=== PATIENT | female | born 1955 | race Caucasian/White ===

== ENCOUNTER 2021-12-25 13:45 | Emergency (ER) | payer BC, SELFPAY ==
[2021-12-25 13:46] VITALS: BP 203/106; PULSE 92; RESP 16; TEMP 36.2; O2SAT 97; BMI 46.3
--- NOTE | 2021-12-25 13:49 | RAD_ITS ---
STUDY: XR Shoulder Min 2 Views REASON FOR EXAM: Female, 66 years old. PAIN TECHNIQUE: XR Shoulder Min 2 Views COMPARISON: None. FINDINGS: There is severe degenerative arthrosis of the glenohumeral articulation. Normal acromioclavicular joint. Normal acromion. There is a metal sideplate transfixing the proximal humerus. There are cortical screws holding the plate in place. The soft tissue structures are unremarkable. Normal visualized pulmonary apex. RAD/Shoulder min 2 Views IMPRESSION: There is severe degenerative arthrosis of the glenohumeral articulation. Electronically Signed: Archie Medina MD at 14:08 EST ,
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
[2021-12-25] MEDS: Diphth,Pertuss(Acell),Tet Vac 0.5 ML Vial IM (14:26)
== END 2021-12-25 14:42 | disposition home or self-care (01) ==
PROVIDERS: Emergency Provider Emergency Medicine; Visit Provider Emergency Medicine
DX: S40.011A Contusion of right shoulder, initial encounter (principal); S00.81XA Abrasion of other part of head, initial encounter; V18.4XXA Pedal cycle driver injured in noncollision transport accident in traffic accident, initial encounter; Y93.55 Activity, bike riding; M19.011 Primary osteoarthritis, right shoulder; Z23 Encounter for immunization
CPT/HCPCS: 73030; 90471; 90715; 99283

== ENCOUNTER → 2022-06-29 | Outpatient (CLI) | payer BC, SELFPAY ==
[2022-06-29 08:40] LABS: Absolute Lymphocyte Count 1.46 X10^3/uL (0.83-4.51); Absolute Neutrophil Count 2.9 X10^3/uL (2.0-7.7); Basophil# 0.04 X10^3/uL; Basophil% 0.8 % (0-1); Eosinophil# 0.36 X10^3/uL; Hematocrit 46.1 % (37-47); Lymphocyte # 1.46 X10^3/ul (0.83-4.51); Lymphocyte % 28.3 % (19-41); Mean Corp Hgb Conc 32.5 g/dL (32-36); Mean Corpuscular Hgb 30.7 pg (27.0-32.0); Mean Corpuscular Volume 94.5 fL (81-99); Mean Platelet Vol. 10.3 fl (6.2-12.0); Monocyte# 0.39 X10^3/uL; Monocyte% 7.6 % (0-10); NRBC Flagged by Analyzer 0 % (0-5); Neutrophil # 2.89 X10^3/uL (2.7-7.7); Neutrophil % 56.1 % (47-70); Platelet Count 183 K/mm3 (150-450); RBC Distribution Width CV 13.1 % (11.6-14.6); RBC Distribution Width SD 44.5 fl (35.1-43.9); Red Blood Count 4.88 M/mm3 (4.2-5.4); White Blood Count 5.2 K/mm3 (4.4-11.0)
[2022-06-29 09:08] LABS: ALB/GLOB Ratio 0.9 RATIO (0.9-2.4); AST(SGOT) 21 U/L (15-37); Alanine Aminotransfer ALT/SGPT 26 U/L (13-56); Albumin, Serum 3.7 g/dL (3.2-5.0); Alkaline Phosphatase 51 U/L (45-117); Anion Gap 4 (5-15); BUN 16 mg/dL (7-18); BUN/Creat Ratio 16.2 RATIO (10-20); Calcium,Total 9.2 mg/dL (8.5-10.1); Chloride 109 mmol/L (98-107); Cholesterol 172 mg/dL (200); Creatinine, Serum 0.98 mg/dL (0.55-1.02); EST Glomerular Filtration Rate 60 mL/min (>60); Est Glom Filt Rate - Afr Amer 72 mL/min (>60); Globulin 4.2 g/dL (2.2-4.2); Glucose 94 mg/dL (74-106); High Density Lipoprotein 40 mg/dL; Potassium 4.2 mmol/L (3.5-5.1); Protein, Total 7.9 g/dL (6.4-8.2); Sodium Level 140 mmol/L (136-145); Triglycerides 135 mg/dL; Very Low Density Lipoprotein 27 mg/dL (5-40)
== END | disposition home or self-care (01) ==
PROVIDERS: PCP Family Medicine; Visit Provider Family Medicine
DX: Z00.00 Encounter for general adult medical examination without abnormal findings (principal); I10 Essential (primary) hypertension
CPT/HCPCS: 36415; 80053; 80061; 85025

== ENCOUNTER → 2022-08-26 | Outpatient (CLI) | payer BC, SELFPAY ==
--- NOTE | 2022-08-26 08:49 | BI_ITS ---
MAMMOGRAPHY - UNILATERAL DIAGNOSTIC: LEFT BREAST REASON FOR EXAM: Female, 67 years old. Abnormal screening mammogram. PERTINENT HISTORY: Mother with breast cancer. TECHNIQUE: Compression spot views of the left breast were obtained in the mediolateral oblique and craniocaudad projections. CAD: Full Field Digital Mammography with Computer Added Detection was performed. COMPARISON: Comparison is made with prior outside examination dated 07/20/2022. FINDINGS: Breast Composition: There are scattered areas of fibroglandular density. The area of asymmetry in the slightly inferior central portion of the left breast is not as prominent at this time. Correlation with ultrasound is recommended. No other significant abnormalities are identified. BI/DIAG MAMM W/CAD, UNILAT IMPRESSION: Mild persistence of the focal area of asymmetry in the slightly inferior central/medial aspect of the left breast. Correlation with ultrasound is recommended. ASSESSMENT CATEGORY: BIRADS Category 0: Incomplete. Need additional imaging evaluation. A letter regarding these results will be sent to the patient by the facility within 30 days. Approximately 10% of breast cancers are not detected by mammography. A normal mammogram should not delay biopsy of a clinically suspicious abnormality. Electronically Signed: Riccardo Ponce MD at 9:55 EDT ,
--- NOTE | 2022-08-26 08:50 | US_ITS ---
STUDY: ULTRASOUND BREAST - LEFT REASON FOR EXAM: Female, 67 years old. Abnormal screening mammogram. TECHNIQUE: Axial and longitudinal images of the LEFT breast were performed with a high resolution ultrasound transducer. # OF IMAGES: 25 COMPARISON: Comparison is made with prior mammogram done earlier today as well as prior outside images dated 07/20/2022. FINDINGS: LEFT Breast: The inferior medial aspect of the left breast was examined with ultrasound. No sonographic abnormality is seen. US/Breast Limited Unilateral IMPRESSION: No sonographic abnormality is seen. ASSESSMENT CATEGORY: BIRADS Category 1: Negative. A letter regarding these results will be sent to the patient by the facility within 30 days. Electronically Signed: Riccardo Ponce MD at 10:41 EDT ,
== END | disposition home or self-care (01) ==
PROVIDERS: PCP Family Medicine; Referring Provider Family Medicine; Visit Provider Family Medicine
DX: R92.8 Other abnormal and inconclusive findings on diagnostic imaging of breast (principal)
CPT/HCPCS: 76642; 77065

== ENCOUNTER → 2023-09-27 | Outpatient (CLI) | payer BC, SELFPAY ==
--- NOTE | 2023-09-27 12:20 | BI_ITS ---
MAMMOGRAPHY - BILATERAL SCREENING REASON FOR EXAM: Female, 68 years old. Routine annual screening examination. PERTINENT HISTORY: Mother with breast cancer. TECHNIQUE: Digital bilateral breast kana (3D mammographic acquisition) in the CC and MLO projections. 2-D mediolateral oblique (MLO) and craniocaudad (CC) views of both breasts were obtained. CAD: Full Field Digital Mammography with Computer Added Detection was performed. COMPARISON: Comparison is made with prior outside examination dated July 20, 2022 and August 26, 2022. FINDINGS: Breast Composition: There are scattered areas of fibroglandular density. There are no dominant masses or suspicious calcifications. Stable asymmetry of breast tissue in the retroareolar region of the left breast. Prior sonogram demonstrating this to be glandular tissue. No other significant abnormalities are identified. There has been no significant change since the prior study. BI/SCRN MAMM (CAD)W/KANA BILAT IMPRESSION: Stable bilateral screening mammogram. Yearly follow-up mammogram recommended. (A) ASSESSMENT CATEGORY: BIRADS Category 2: Benign. A letter regarding these results will be sent to the patient by the facility within 30 days. Approximately 10% of breast cancers are not detected by mammography. A normal mammogram should not delay biopsy of a clinically suspicious abnormality. [id number] Electronically Signed: Riccardo Ponce MD at 10:28 EST ,
== END | disposition home or self-care (01) ==
LOC: OPBI 12:17
PROVIDERS: PCP Family Medicine; Referring Provider Family Medicine; Visit Provider Family Medicine
DX: Z12.31 Encounter for screening mammogram for malignant neoplasm of breast (principal); Z80.3 Family history of malignant neoplasm of breast
CPT/HCPCS: 77063; 77067

== ENCOUNTER → 2025-01-31 | Outpatient (CLI) | payer BC, SELFPAY ==
--- NOTE | 2025-01-31 08:35 | BI_ITS ---
EXAM: SCRN MAMM (CAD)W/KANA BILAT 01/31/2025 CLINICAL HISTORY: F, Age 70 y/o , SCREENING TECHNIQUE: Bilateral screening digital breast tomosynthesis with 2D and 3D images. Computer aided detection. COMPARISON: Prior exam(s) dated 09/27/2023, 08/26/2022. FINDINGS: Somewhat limited examination of the left axillary tail/axilla due to limited range of motion of the left upper extremity. TISSUE DENSITY: The breast tissue is composed of scattered area of fibroglandular density. Bilateral Breast Mammographic Findings: No significant masses, calcifications or other abnormalities are identified. BI/SCRN MAMM (CAD)W/KANA BILAT IMPRESSION: Right Breast: BIRADS 1 NEGATIVE. Left Breast: BIRADS 1 NEGATIVE. OVERALL FINAL ASSESSMENT: BIRADS 1 NEGATIVE. RECOMMENDATION: Routine annual follow-up in 1 Year A letter with findings and recommendations will be mailed to the patient. Reading Location: [id number]
== END | disposition home or self-care (01) ==
LOC: OPBI 08:31
PROVIDERS: PCP Family Medicine; Referring Provider Family Medicine; Visit Provider Family Medicine
DX: Z12.31 Encounter for screening mammogram for malignant neoplasm of breast (principal)
CPT/HCPCS: 77063; 77067

== ENCOUNTER → 2025-04-07 | Outpatient (CLI) | payer BC, SELFPAY ==
[2025-04-07 13:00] LABS: Anion Gap 11 (5-15); BUN 16 mg/dL (4-19); BUN/Creat Ratio 15.9 RATIO (10-20); Calcium,Total 9.7 mg/dL (7.6-11.0); Carbon Dioxide 24.8 mmol/L (21.0-32.0); Chloride 106 mmol/L (98-108); Creatinine, Serum 0.98 mg/dL (0.70-1.20); EST Glomerular Filtration Rate 62 (>60); Glucose 88 mg/dL (70-99); Potassium 4.5 mmol/L (3.3-5.1); Sodium Level 141 mmol/L (133-145)
== END | disposition home or self-care (01) ==
LOC: LAB 11:28
PROVIDERS: PCP Family Medicine; Referring Provider Student in an Organized Health Care Education/Training Program; Visit Provider Student in an Organized Health Care Education/Training Program
DX: I10 Essential (primary) hypertension (principal)
CPT/HCPCS: 36415; 80048

== ENCOUNTER → 2025-04-11 | Outpatient (CLI) | payer BC, SELFPAY ==
--- NOTE | 2025-04-11 08:20 | ECHOD_ITS ---
Reason For Study Reason For Study: Murmur Procedure This was a 2D Doppler, Color Flow transthoracic echocardiogram. Exam performed in department. Left Ventricle Normal LV size. Mild concentric left ventricular hypertrophy. The left ventricular ejection fraction is 40 %. Stage 1 diastolic dysfunction. Right Ventricle Normal RV size. Normal systolic function. Atria Normal left atrium. Normal right atrium. Mitral Valve Normal mitral valve. Tricuspid Valve Normal tricuspid valve. Mild tricuspid valve insufficiency. Pulmonary artery systolic pressure is 20 mmHg. Aortic Valve Trisinus/trileaflet aortic valve. Mild focal aortic valve calcification. Peak aortic valve gradient 25 mmHg. Mean aortic valve gradient 14 mmHg. Pericardium/Pleural No pericardial effusion. MMode/2D Measurements & Calculations LVIDd: 5.4 cm IVSd: 1.5 cm LVOT diam: 2.1 cm LVIDs: 4.5 cm LVPWd: 1.2 cm LVOT area: 3.5 cm2 RVDd: 3.9 cm FS: 15.8 % Ao root diam: 3.6 cm LAV(MOD-bp): 65.2 ml LVAd ap4: 46.3 cm2 LAV(MOD-bp) Indexed: 29.6 ml/m2 LVLd ap4: 9.3 cm LAV(MOD-sp2): 65.6 ml EDV(MOD-sp4): 189.7 ml LAV(MOD-sp4): 60.6 ml EDV(sp4-el): 195.5 ml LVAs ap4: 34.2 cm2 LVLs ap4: 8.2 cm ESV(MOD-sp4): 120.9 ml ESV(sp4-el): 120.1 ml EF(MOD-sp4): 36.3 % EF(sp4-el): 38.5 % SV(MOD-sp4): 68.8 ml SV(MOD-sp2): 51.3 ml LVAd ap2: 39.6 cm2 LVLd ap2: 9.1 cm SI(MOD-sp4): 31.2 ml/m2 SI(MOD-sp2): 23.3 ml/m2 EDV(MOD-sp2): 144.8 ml EDV(sp2-el): 146.0 ml LVAs ap2: 31.4 cm2 LVLs ap2: 8.8 cm ESV(MOD-sp2): 93.4 ml ESV(sp2-el): 95.4 ml EF(MOD-sp2): 35.5 % SV(sp4-el): 75.4 ml LA A4 area: 19.9 cm2 RA A4 area: 14.4 cm2 TAPSE: 1.9 cm Time Measurements MV dec time: 0.29 sec Doppler Measurements & Calculations MV E max regis: 90.6 cm/sec Lat Peak E' Regis: 5.8 cm/sec Med Peak E' Regis: 4.2 cm/sec MV A max regis: 124.1 cm/sec E/E' lat: 15.6 E/E' med: 21.7 MV E/A: 0.73 Ao V2 max: 250.4 cm/sec LV V1 max: 137.9 cm/sec MV dec slope: 315.9 cm/sec2 Ao max P.1 mmHg LV V1 max P.6 mmHg Ao V2 mean: 178.0 cm/sec LV V1 mean P.3 mmHg Ao mean P.9 mmHg LV V1 mean: 97.6 cm/sec Ao V2 VTI: 56.4 cm LV V1 VTI: 31.7 cm AV (velocity ratio): 0.56 DILAN(I,D): 2.0 cm2 DILAN(V,D): 1.9 cm2 SV(LVOT): 110.1 ml PA V2 max: 114.9 cm/sec TR max regis: 206.9 cm/sec TR max P.1 mmHg ECHO/Echo Complete Interpretation Summary Normal LV size. The left ventricular ejection fraction is 40 %. Stage 1 diastolic dysfunction. Mean aortic valve gradient 14 mmHg. Ordering Physician: Oscar, [place] Referring Physician: Fiona Urena Performed By: Penny Zayas, [facility]
--- OUTSIDE RECORDS SUMMARY | 2025-04-11 08:39 | XMS RPT_ITS | CCD ---
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 [facility] Work Phone: Protein [Mass/Vol] 7.9 g/dL 6.4-8.2 [facility] Work Phone: Sodium [Moles/Vol] 140 mmol/L 136-145 [facility] Work Phone: Triglyceride [Mass/Vol] 135 mg/dL <199 [facility] Work Phone: Comment on above: The drugs N-Acetylcy steine and Metamizole may falsely depress this assay.Serum Triglycerides Reference Interval Normal <150 mg/dL Borderline high 150 - 199 mg/dL High 200 - 499 mg/dL Very High > or = 500 mg/dL WBC (Bld) [#/Vol] 5.2 10*3/uL 4.4-11.0 [facility] Work Phone: Blood erythrocytes count (nu mber/volume)on 06-29-2022 RBC (Bld) [#/Vol] 4.88 10*6/uL 4.2-5.4 [facility]: Blood hemoglobin measurement (mass/volume)on 06-29-2022 Hemoglobin (Bld) [Mass/Vol] 15.0 g/dL 12.0-15.0 [facility] Work Phone: Blood lymphocytes/100 leukoc yteson 06-29-2022 Lymphocytes/100 WBC (Bld) 28.3 % 19-41 [facility] Work Phone: Blood monocytes/100 leukocyt eson 06-29-2022 Monocytes/100 WBC (Bld) 7.6 % 0-10 [facility] Work Phone: Blood platelet mean volumeon 06-29-2022 Platelet mean volume (Bld) [Entitic vol] 10.3 fL 6.2-12.0 [facility] Work Phone: Determination of erythrocyte mean corpuscular volume (MCV)on 06-29-2022 MCV (RBC) [Entitic vol] 94.5 fL 81-99 [facility] Work Phone: Hematocrit Auto (Bld) [Volum e fraction]on 06-29-2022 Hematocrit (Bld) [Volume fraction] 46.1 % 37-47 [facility] Work Phone: Laboratory - Chemistry and C hemistry - challengeon 06-29-2022 ALP [Catalytic activity/Vol] 51 U/L 45-117 [facility] Work Phone: ALT [Catalytic activity/Vol] 26 U/L 13-56 [facility] Work Phone: CO2 [Moles/Vol] 27.0 mmol/L 21.0-32.0 [facility] Work Phone: Globulin (S) [Mass/Vol] 4.2 g/dL 2.2-4.2 [facility] Work Phone: Urea nitrogen/Creatinine [Mass ratio] 16.2 mg/mg 10-20 [facility] Work Phone: Laboratory - Hematology and Cell countson 06-29-2022 Erythrocyte distribution width (RBC) [Entitic vol] 44.5 fL 35.1-43.9 [facility] Work Phone: Erythrocyte distribution width (RBC) [Ratio] 13.1 % 11.6-14.6 [facility] Work Phone: Immature granulocytes/100 WBC (Bld) 0.200 % 0.0-0.9 [facility] Work Phone: Comment on above: IG% - Immature Granu locytes (promyelocytes, myelocytes and metamyelocytes) > 1% indicates that a LEFT SHIFT is Present. MCH (RBC) [Entitic mass] 30.7 pg 27.0-32.0 [facility] Work Phone: Nucleated RBC/100 WBC (Bld) [Ratio] 0 % 0-5 [facility] Work Phone: MCHC Auto (RBC) [Mass/Vol]on 06-29-2022 MCHC (RBC) [Mass/Vol] 32.5 g/dL 32-36 [facility] Work Phone: No Panel Informationon 06-29 Estimated GFR (MDRD) Amer 72 mL/min >60 [facility] Work Phone: Comment on above: GFR Calc Estimated GFR (MDRD) Non-Af Amer 60 mL/min >60 [facility] Work Phone: Comment on above: Non- GFR Calc Platelets bldon 06-29-2022 Platelets (Bld) [#/Vol] 183 10*3/uL 150-450 [facility] Work Phone: Serum or plasma albumin mana urement (mass/volume)on 06-29-2022 Albumin [Mass/Vol] 3.7 g/dL 3.2-5.0 [facility] Work Phone: Serum or plasma albumin/glob ulin mass ratioon 06-29-2022 Albumin/Globulin [Mass ratio] 0.9 {ratio} 0.9-2.4 [facility] Work Phone: Serum or plasma calcium mana urement (mass/volume)on 06-29-2022 Calcium [Mass/Vol] 9.2 mg/dL 8.5-10.1 [facility] Work Phone: Serum or plasma cholesterol in HDL measurement (mass/volume)on 06-29-2022 Cholesterol in HDL [Mass/Vol] 40 mg/dL >40 [facility] Work Phone: Comment on above: The drugs N-Acetylcy steine and Metamizole may falsely depress this assay. Reference Range HDL <40 mg/dL Low HDL Cholesterol HDL >or= 60 mg/dL High HDL Cholesterol Serum or plasma cholesterol in VLDL measurement (mass/volume)on 06-29-2022 Cholesterol in VLDL [Mass/Vol] 27 mg/dL 5-40 [facility] Work Phone: Serum or plasma creatinine m easurement (mass/volume)on 06-29-2022 Creatinine [Mass/Vol] 0.98 mg/dL 0.55-1.02 [facility] Work Phone: Comment on above: The validity of the calculated GFR & GFRAA in patients over 70 years has not been determined. Clinical correlation is essential. Serum or plasma low density lipoprotein (LDL) cholesterol measurement (mass/volume)on 06-29-2022 Cholesterol in LDL [Mass/Vol] 105 mg/dL 0-130 [facility] Work Phone: Serum or plasma urea nitroge n measurement (mass/volume)on 06-29-2022 Urea nitrogen [Mass/Vol] 16 mg/dL 7-18 [facility] Work Phone: Thin prep Papanicolaou smear with manual screeningon 06-29-2022 Thin prep Papanicolaou smear with manual screening 21 U/L 15-37 [facility] Work Phone: Thin prep Papanicolaou smear with manual screening 4 5-15 [facility] Work Phone: Roly 06-24-2022 CNPN Telephone (OBGYWM) ANA RAWLS ([id number]) 1955 F Date Time Provider Department 06/24/22 RASHEED CANO OBGYWM During your visit today, we recorded the following information about you: Lore Love 06/24/2022 1:53 PM Signed Replaying to fax referral. More information needed what the consult is for. Tried calling patient but the phone number given isn't in service. Patient doesn't have usable email listed. Lore Love Allergies As of Date: 06/24/2022 (No Known Allergies) Date Reviewed: 06/19/2012 Reviewed by: Carina Mares Ma - Fully Assessed Reason for Visit: Appointment [186] Cmt: Replaying to fax referral. More information needed what the consult is for. Tried calling patient but the phone number given isn't in service. Patient doesn't have usable email listed. Prescriptions as of 06/24/2022 - triamcinolone acetonide 0.1 % cream Apply 1 application to affected area twice daily. Apply to affected area for rash. Problem List As Of Date 06/24/2022 Noted Resolved VIRAL WARTS NOS [B07.9] 03/21/2007 PAIN IN LIMB [M79.609] 03/21/2007 Head injury, unspecified [S09.90XA] 06/19/2012 Encounter Status:Closed by LORE LOVE on 06/24/22 Normal [facility] Vital Signs Date Time Vital Sign Value Performing Clinician Faci lity 04-07-2025 06:55-0400 Body mass index (BMI) [Ratio] 45.4 kg/m2 Dr. Fiona Urena MD Work Phone: [facility] 04-07-2025 06:55-0400 Body weight 120.[address] Fiona Urena MD Work Phone: [facility] 04-07-2025 06:55-0400 Diastolic blood pressure 86 mm[Hg] Dr. Fiona Urena MD Work Phone: [facility] 04-07-2025 06:55-0400 Heart rate 57 /min Dr. Fiona Urena MD Work Phone: [facility] 04-07-2025 06:55-0400 Respiratory rate 18 /min Dr. Fiona Urena MD Work Phone: [facility] 04-07-2025 06:55-0400 SaO2% (BldA) [Mass fraction] 99 % Dr. Fiona Urena MD Work Phone: [facility] 04-07-2025 06:55-0400 Systolic blood pressure 162 mm[Hg] Dr. Fiona Urena MD Work Phone: [facility] 03-05-2025 10:34-0400 Body height 162.[address] Fiona Urena MD Work Phone: [facility] 03-05-2025 10:34-0400 Body mass index (BMI) [Ratio] 46.3 kg/m2 Dr. Fiona Urena MD Work Phone: [facility] 03-05-2025 10:34-0400 Body weight 122.[address] Fiona Urena MD Work Phone: [facility] 03-05-2025 10:34-0400 Diastolic blood pressure 96 mm[Hg] Dr. Fiona Urena MD Work Phone: [facility] 03-05-2025 10:34-0400 Heart rate 82 /min Dr. Fiona Urena MD Work Phone: [facility] 03-05-2025 10:34-0400 Respiratory rate 16 /min Dr. Fiona Urena MD Work Phone: [facility] 03-05-2025 10:34-0400 Systolic blood pressure 162 mm[Hg] Dr. Fiona Uerna MD Work Phone: [facility] Encounters Encounter Date Encounter Type Care Provider Facility Start: 04-11-2025 ambulatory [facility] Facility:[facility] Start: 04-07-2025 End: 04-07-2025 Patient encounter procedure Alberto SANTIAGO -[facility] Work Phone: Start: 04-07-2025 End: 04-07-[address] Fiona Urena MD Work Phone: [facility] Work Phone: Start: 03-05-2025 End: 03-05-[address] Mitul Moore MD -[facility] Work Phone: Start: 03-05-2025 End: 03-05-2025 ambulatory [facility] Facility:[facility] Start: 01-31-2025 End: 01-31-[address] Fiona Urena MD Work Phone: [facility] Work Phone: Start: 01-31-2025 End: 01-31-[address] Fiona Urena MD -[facility] Work Phone: Start: 01-31-2025 End: 01-31-2025 ambulatory Fiona Urena Facility:[facility] Start: 08-26-2022 End: 08-26-2022 ambulatory [facility] Work Phone: Start: 08-26-2022 End: 08-26-2022 Patient encounter procedure [facility] Start: 07-20-2022 Documentation procedure Mammog kathy Coordinator [facility] Start: 07-20-2022 Letter encounter Mammography Coordinator [facility] Department Start: 07-20-2022 End: 07-20-2022 ambulatory FIONA URENA Facility:[facility] Start: 07-20-2022 End: 07-20-2022 Subsequent hospital visit by physician Screen Mammo [facility] Mammogram Start: 06-29-2022 End: 06-29-2022 ambulatory [facility] Work Phone: Start: 06-29-2022 End: 06-29-2022 Patient encounter procedure [facility]-Laboratory Start: 06-24-2022 Telephone encounter Rasheed Cano MD Work Phone: OB/Gynecology Comment on above: Appointment (Replayi ng to fax referral. More information needed what the consult is for. Tried calling patient but the phone number given isn't in service. Patient doesn't have usable email listed. ) Procedures Date Procedure Procedure Detail Performing Clinician Start: 03-05-2025 Evaluation of diagno stic study results Dr. Fiona Urena MD Work Phone: Start: 01-31-2025 Screening mammography Antonio Urena MD Work Phone: Start: 08-26-2022 Ultrasonography of breast Start: 08-26-2022 Mammography Start: 07-20-2022 End: 07-20-2022 Screening mammography bi [facility] Provider Start: 06-19-2012 Mammography Rasheed kennedy MD Work Phone: Plan of Treatment Date Care Activity Detail Author Start: 07-20-2023 Mammography MAMMOGRAM [facility] Start: 06-30-2022 Influenza vaccination INFLUENZA (#1) [facility] Start: 10-30-2021 ADVANCE DIRECTIVE DISCUSSION ADVANCE DIRECTIVE DISCUSSION [facility] Start: 01-11-2020 BONE DENSITY BONE DENSITY [facility] Start: 01-11-2020 PNEUMOCOCCAL: 65+ (1 - PCV) PNEUMOCOCCAL: 65+ (1 - PCV) [facility] Start: 06-19-2013 Mammography MAMMOGRAM [facility] Start: 02-11-2013 LIPID SCREEN LIPID SCREEN [facility] Start: 02-11-2011 DIABETES SCREEN DIABETES SCREEN [facility] Start: 2005 SHINGRIX VACCINE (1 of 2) SHINGRIX VACCINE (1 of 2) [facility] Start: 01-11-2000 COLOGUARD (FIT-DNA) COLOGUARD (FIT-DNA) [facility] Start: 01-11-2000 Colonoscopy COLONOSCOPY [facility] Start: 01-11-2000 COLORECTAL CANCER SCREENING COLORECTAL CANCER SCREENING [facility] Start: 01-11-[address] COLONOGRAPHY [facility] Start: 01-11-2000 FECAL OCCULT BLOOD FECAL OCCULT BLOOD [facility] Start: 01-11-2000 SIGMOIDOSCOPY SIGMOIDOSCOPY [facility] Start: 1974 Urine microalbumin profile DTAP,TDAP,TD (1 - Tdap) [facility] Start: 1973 HEPATITIS C SCREENING HEPATITIS C SCREENING [facility] Start: 1967 Adult depression screening assessment DEPRESSION SCREENING [facility] Start: 1955 COVID-19 VACCINE (#1) COVID-19 VACCINE (#1) [facility] Basic metabolic 2008 panel with ionized calcium - Serum or Plasma [facility] Immunizations Immunization Date Immunization Notes Care Provider Fa cility 12-25-2021 tetanus toxoid, redu [place] diphtheria toxoid, and acellular pertussis vaccine, adsorbed [facility] 09-30-2017 influenza, injectabl e, quadrivalent, contains preservative Rasheed Cano MD Work Phone: [facility] Payers Date Payer Category Payer Self-pay [id number] 2020 Unknown [employer] BLUE CARD PPO OOS [id number] 2020-Present [phone] [id number] [place] [address] PPO [id number] 2020 Unknown [id number] Unknown [employer] [id number] . 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) [facility] Start: 1955 [facility] Start: 12-25-2021 Tobacco smoking stat us AZIS Unknown if ever smoked [facility] Work Phone: Start: 1955 Sex Assigned At Female [facility] Start: 06-14-2022 End: 06-24-2022 Exposure to SARS-CoV-2 (event) Not sure [facility] Start: 02-05-2025 Sex Female (finding) [facility] Evaluation note 03-05-2025 Note Date & Type Note Facility 03-05-2025 Evaluation note Diagnosis Onset Date Resolution Aortic stenosis acute March 05, 2025 8:55am Chest discomfort acute March 05, 2025 8:55am LBBB (left bundle branch block) acute March 05, 2025 8: 55am Aortic stenosis acute April 07, 2025 10:48am Chest discomfort acute March 10:48am LBBB (left bundle branch block) acute April 07, 2025 1 0:48am [email or web address] Work Phone: Progress note 07-20-2022 Note Date & Type Note Facility 07-20-2022 Note HNO ID: [id number] Author: RT Duc(R) Service: ? Author Type: Technologist Type: Progress Notes Filed: 07/20/2022 9:09 AM Note Text: Radiology Service Progress Note PATIENT NAME: Ana Rawls DATE OF SERVICE: July 20, 2022 TIME: 9:09 AM PATIENT IDENTITY VERIFICATION COMPLETED USING TWO (2) IDENTIFIERS: Name and Date of confirmed by patient verbally. FALL SCREENING: Has the patient had 2 falls in the last year or 1 fall with injury or currently using an Ambulatory Assistive Device (Walker, Cane, Wheelchair, Crutches, etc.)? No PATIENT GENDER DATA: Female. status: : No status: NO. PATIENT RELEVANT IMPLANT DATA REVIEWED: Not Applicable RADIOLOGY DEPARTMENT: Mammography PERIPHERAL IV DATA: Not applicable SIGNED BY: RT Duc(R) July 20, 2022 9:09 AM [facility] Note 07-20-2022 Letter - Mammography Coordinator - 07/20/2022 10:11 AM EDT Note Date & Type Note Facility 07-20-2022 Miscellaneous Notes Formattin g of this note might be different from the original. July 20, 2022 PID: [id number] Ana Rawls [id number] [id number] Dear Ms. Rawls, Your recent breast imaging exam on 07/20/2022 showed a possible finding that requires additional imaging studies for a complete evaluation. Most such findings are probably benign (not cancer). If you have a healthcare provider who ordered/prescribed your screening mammogram: Please call [phone] or [phone]: [phone] to schedule an appointment for your additional imaging (if you have not already done so). If you DO NOT have a healthcare provider (ie you did not have an order/prescription for your screening mammogram): Please call to schedule an appointment for your additional imaging (if you have not already done so). You must have an order/prescription from your physician when calling to schedule your appointment. If your order/prescription is not electronic, you must bring the hard copy with you on the day of your exam to avoid delays. Your imaging studies and reports are kept on file at [facility] as part of your permanent medical record, and are available for your continuing care. Thank you for allowing us to help in meeting your health care needs. Sincerely, Dr. Rooney Interpreting Radiologist [facility] (Additional imaging) documented in this encounter [facility] History of Present illness Narrative 07-20-2022 RT Duc(R) - 07/20/2022 9:10 AM EDT Note Date & Type Note Facility 07-20-2022 History of Presen t illness Narrative Radiology Service Progress Note PATIENT NAME: Ana Rawls DATE OF SERVICE: July 20, 2022 TIME: 9:09 AM PATIENT IDENTITY VERIFICATION COMPLETED USING TWO (2) IDENTIFIERS: Name and Date of confirmed by patient verbally. FALL SCREENING: Has the patient had 2 falls in the last year or 1 fall with injury or currently using an Ambulatory Assistive Device (Walker, Cane, Wheelchair, Crutches, etc.)? No PATIENT GENDER DATA: Female. status: : No status: NO. PATIENT RELEVANT IMPLANT DATA REVIEWED: Not Applicable RADIOLOGY DEPARTMENT: Mammography PERIPHERAL IV DATA: Not applicable SIGNED BY: RT Duc(R) July 20, 2022 9:09 AM documented in this encounter [facility] Note 06-24-2022 Telephone Encounter - Lore Love - 06/24/2022 1:51 PM EDT Note Date & Type Note Facility 06-24-2022 Miscellaneous Notes Formattin g of this note might be different from the original. Replaying to fax referral. More information needed what the consult is for. Tried calling patient but the phone number given isn't in service. Patient doesn't have usable email listed. Lore Love documented in this encounter [facility] Evaluation note Note Date & Type Note Facility Evaluation note No assessment information availa [facility] Work Phone: Reason for referral (narrative) Note Date & Type Note Facility Reason for referral (narrative) No reason for referral information available [facility] Work Phone: Advance Directives No Advanced Directives Records Found Advance Directive Response Recorded Date/ Time Living Will No December 25 022 3:39pm Power of Finance Manager No December 25, 2021 3:39pm Summary Purpose Family History No Family History Records Found Relationship Condition Age at Onset Recorded Date/T wilmar father Diabetes mellitus Unknown Cardiac disease Unknown mother Malignant neoplasm of breast Unknown Chief Complaint and Reason for Visit Chief Complaint ABNORMAL MAMMO Chief Complaint Admit Date SCREENING January 31, 2025 8:30 am Chief Complaint Admit Date SCREENING January 31, 2025 8:30 am LBBB/MURMUR (MIEDEL) March 05, 2025 8:55a m 1 M FU April 07, 2025 10:48 am Reason for Visit Admit Date Aortic stenosis March 05, 2025 8:55am Chest discomfort March 05, 2025 8:55am LBBB (left bundle branch block) March 05, 2025 8:55am Aortic stenosis April 07, 2025 10:48 am Chest discomfort April 07, 2025 10:48 am LBBB (left bundle branch block) March 10:48am Additional Source Comments Source Comments (unrecognize d section and content) In the event this informatio n is protected by the Federal Confidentiality of Alcohol and Drug Abuse Patient Records regulations: The Federal rules restrict any use of the information to criminally investigate or prosecute any alcohol or drug abuse patient[facility] the event this information is protected by the Federal Confidentiality of Alcohol and Drug Abuse Patient Records regulations: The Federal rules restrict any use of the information to criminally investigate or prosecute any alcohol or drug abuse patient.[facility] the event this information is protected by the Federal Confidentiality of Alcohol and Drug Abuse Patient Records regulations: The Federal rules restrict any use of the information to criminally investigate or prosecute any alcohol or drug abuse patient.[facility] Reason for Visit (unrecogniz ed section and content) Reason Comments Appointment Replaying to fax ref erral. More information needed what the consult is for. Tried calling patient but the phone number given isn't in service. Patient doesn't have usable email listed. Goals (unrecognized section and content) Goals may be documented in a n alternate sectionGoals may be documented in an alternate sectionGoals may be documented in an alternate sectionGoals may be documented in an alternate section INFORMATION SOURCE (unrecogn ized section and content) DATE CREATED AUTHOR 08/21/2022 [facility] DATE CREATED AUTHOR AUTHOR'S ORGANIZ ATION 04/09/2025 [facility] Care Teams (unrecognized sec tion and content) Team Status: Active Member Role Status Dates Dr. Fiona Urena MD Primary Care Provider Active Team Status: Inactive Member Role Status Dates Dr. Fiona Urena MD Primary Care Provider Active Start: January 31, 2025 End: January 31, 2025 Dr. Fiona Urena MD Attending Provider Active Start: January 31, 2025 End: January 31, 2025 Dr. Fiona Urena MD Referring Provider Active Start: January 31, 2025 End: January 31, 2025 Team Status: Inactive Member Role Status Dates Dr. Fiona Urena MD Primary Care Provider Active Start: March 05, 2025 End: March 05, 2025 Dr. Fiona Urena MD Referring Provider Active Start: March 05, 2025 End: March 05, 2025 Dr. Mitul Moore MD Attending Provider Active S tart: March 05, 2025 End: March 05, 2025 Team Status: Inactive Member Role Status Dates Dr. Fiona Urena MD Primary Care Provider Active Start: April 07, 2025 End: April 07, 2025 Dr. Fiona Urena MD Referring Provider Active Start: April 07, 2025 End: April 07, 2025 PAMELA Leyva Attending Provider Active St art: April 07, 2025 End: April 07, 2025 FOR RECORDS PERTAINING TO PATIENTS WHO ARE OR HAVE BEEN ENROLLED IN A CHEMICAL DEPENDENCY/SUBSTANCEABUSE PROGRAM, SOME INFORMATION MAY BE OMITTED. This clinical summary was aggregated from multiple sources. Caution should be exercised in using it in the provision of clinical care. This summary normalizes information from multiple sources, and as a consequence, information in this document may materially change the coding, format and clinical context of patient data. In addition, data may be omitted in some cases. CLINICAL DECISIONS SHOULD BE BASED ON THE PRIMARY CLINICAL RECORDS. [employer] provides no warranty or guarantee of the accuracy or completeness of information in this document.
== END | disposition home or self-care (01) ==
PROVIDERS: PCP Family Medicine; Referring Provider Internal Medicine Cardiovascular Disease; Visit Provider Internal Medicine Cardiovascular Disease
DX: R01.1 Cardiac murmur, unspecified (principal); I44.7 Left bundle-branch block, unspecified
CPT/HCPCS: 93306

== ENCOUNTER → 2025-05-28 | Outpatient (CLI) | payer BC, SELFPAY ==
[2025-05-28 11:42] LABS: Anion Gap 11 (5-15); BUN 17 mg/dL (4-19); BUN/Creat Ratio 17.2 RATIO (10-20); Calcium,Total 9.6 mg/dL (7.6-11.0); Carbon Dioxide 22.5 mmol/L (21.0-32.0); Chloride 107 mmol/L (98-108); Glucose 93 mg/dL (70-99); Potassium 4.3 mmol/L (3.3-5.1)
== END | disposition home or self-care (01) ==
LOC: LAB 10:02
PROVIDERS: PCP Family Medicine; Referring Provider Student in an Organized Health Care Education/Training Program; Visit Provider Student in an Organized Health Care Education/Training Program
DX: I11.0 Hypertensive heart disease with heart failure (principal); I50.20 Unspecified systolic (congestive) heart failure
CPT/HCPCS: 36415; 80048

== ENCOUNTER → 2025-06-04 | Outpatient (CLI) | payer BC, SELFPAY ==
--- OUTSIDE RECORDS SUMMARY | 2025-06-04 06:46 | XMS RPT_ITS | CCD ---
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 Normal [facility] Breast imaging reportOrdered By: Cathie Rodriguez on 01-31-2025 Study report [facility] Services [address] [place], [place] [address] SCRN MAMM (CAD)W/KANA BILAT MR#: [id number] Acct: [id number] Name: ANA RAWLS Rep #: [id number] : 1955 F 70 From: Kya Rodriguez MD PCP: Dr. Fiona Urena MD Status: [facility] Study:SCRN MAMM (CAD)W/KANA BILAT Date of Exa m: 01/31/25 Exam# [id number] Ordering Dr: Jono Urena MD EXAM: SCRN [...] be mailed to the patient. Reading Location: [facility] CC: Dr. Fiona Urena MD ~ Plate Glass Grinder: Signed [facility] SCRN MAMM (CAD)W/KANA BILATo n 01-31-2025 SCRN MAMM (CAD)W/KANA BILAT [facility] Imaging Services [address] [place] [id number] SCRN MAMM (CAD)W/KANA BILAT MR#: [id number] Acct: [id number] Name: ANA RAWLS Rep #: [id number] : 1955 F 70 From: Cathie Rodriguez MD PCP: Dr. Fiona Urena MD Status: [facility] Study: SCRN MAMM (CAD)W/KANA BILAT Date of Exam: 02/21 Exam# [id number] Ordering Dr: Fiona Urena MD EXAM: SCRN [...] be mailed to the patient. Reading Location: [id number] CC: Dr. Fiona Urena MD Plate Glass Grinder: Signed [facility] 08-16-2022 [facility] Letter Text Normal [facility] 07-20-2022 [facility]CO HNO ID: [id number] Author: Mammography Coordinator Service: ? Author Type: Physician Type: Letter Filed: 07/21/2022 11:35 PM Note Text: July 20, 2022 PID: [id number] Ana Rawls [address] [place] [address] Dear Ms. Rawls, Your recent breast imaging exam on 07/20/2022 showed a possible finding that requires additional imaging studies for a complete evaluation. Most such findings are probably benign (not cancer). If you have a healthcare provider who ordered/prescribed your screening mammogram: Please call [phone] or [phone] to schedule an appointment for your additional [...] and reports are kept on file at [facility] as part of your permanent medical record, and are available for your continuing care. Thank you for allowing us to help in meeting your health care needs. Sincerely, Dr. Rooney Interpreting Radiologist [facility] (Additional imaging) Normal [facility] SCREENINGon 07-20-2022 [facility] SCREENING * * *Final Report* * * DATE OF EXAM: Jul 20 2022 10:09AM TEJ [id number] - [facility] SCREENING / PROCEDURE REASON: screening mammogram * * * * Physician Interpretation * * * * RESULT: #[id number] - ADARSH SCREENING BILATERAL DIGITAL SCREENING MAMMOGRAM WITH CAD: 07/20/2022 HISTORY: Screening Mammogram /Screening Mammogram-Patient reports NO symptoms. /priors available for comparison. RESULT: TECHNIQUE: The study was acquired using full field digital technology and interpreted from soft copy. Current study was also evaluated with a Computer Aided Detection (CAD). Comparison is made to exams dated: 06/19/2012 mammogram - [facility], 02/01/2010 mammogram, and 04/16/2007 mammogram. The [...] was reviewed by a staff physician. Schuyler Jeffries M.D. ld,adh/penrad:07/20/2022 10:11:08 Diesel Engine Fitter(s): Toshia Mays, [facility] letter sent: Additional Imaging Needed Mammogram BI-RADS: 0 Incomplete: needs additional imaging evaluation If this report indicates you need additional imaging, and it has NOT yet been performed, please call , to schedule. We sincerely thank you for choosing the [facility] for your breast imaging needs. Multiple national specialty organizations have released breast cancer screening guidelines for women at average risk for developing breast cancer - guidelines that are based on both evidence and opinion, yet differ on when to start and how often to screen for breast cancer. With representation from Breast Imaging, Internal Medicine, Women's Health, Family Medicine, and Medical/Surgical Oncology, the [facility] has carefully reviewed the data and reached [...] their providers when to stop screening mammograms. Plate Glass Grinder: [place] Transcribe Date/Time: Jul 20 2022 9:44A Dictated by: MELANIE JEFFRIES MD This examination was interpreted and the report reviewed and electronically signed by: SCHUYLER ROONEY MD on Jul 20 2022 10:11AM EST [id number] Normal [facility] Absolute lymphocyte counton 06-29-2022 Lymphocytes Auto (Unsp spec) [#/Vol] 1.46 10*3/uL 0.83-4.51 [facility] Work Phone: Basophil percentageon 2021 Basophils/100 WBC (Bld) 0.8 % 0-1 [facility] Work Phone: Bilirubin [Mass/Vol] 0.80 mg/dL 0.20-1.00 [facility] Work Phone: Comment on above: For patients on eltr ombopag therapy, use of Dimension Ver[place] TBIL is not recommended. Chloride [Moles/Vol] 109 mmol/L 98-107 [facility] Work Phone: Cholesterol [Mass/Vol] 172 mg/dL <200 [facility] Work Phone: Comment on above: <200 mg/dL Desirable 200-240 mg/dL Borderline >240 mg/dL High Risk Eosinophils/100 WBC (Bld) 7.0 % 0-5 [facility] Work Phone: Glucose [Mass/Vol] 94 mg/dL 74-106 [facility] Work Phone: Neutrophils (Bld) [#/Vol] 2.9 10*3/uL 2.0-7.7 [facility] Work Phone: Neutrophils/100 WBC (Bld) 56.1 % 47-70 [facility] Work Phone: Potassium [Moles/Vol] 4.2 mmol/L 3.5-5.1 [facility] Work Phone: Protein [Mass/Vol] 7.9 g/dL 6.4-8.2 [facility] Work Phone: Sodium [Moles/Vol] 140 mmol/L 136-145 [facility] Work Phone: Triglyceride [Mass/Vol] 135 mg/dL <199 [facility] Work Phone: Comment on above: The drugs N-Acetylcy steine and Metamizole may falsely depress this assay.Serum Triglycerides Reference Interval Normal <150 mg/dL Borderline high 150 - 199 mg/dL High 200 - 499 mg/dL Very High > or = 500 mg/dL WBC (Bld) [#/Vol] 5.2 10*3/uL 4.4-11.0 [facility] Work Phone: Blood erythrocytes count (nu mber/volume)on 06-29-2022 RBC (Bld) [#/Vol] 4.88 10*6/uL 4.2-5.4 [facility] Work Phone: Blood hemoglobin measurement (mass/volume)on 06-29-2022 Hemoglobin (Bld) [Mass/Vol] 15.0 g/dL 12.0-15.0 [facility] Work Phone: Blood lymphocytes/100 leukoc yteson 06-29-2022 Lymphocytes/100 WBC (Bld) 28.3 % 19-41 [facility] Work Phone: Blood monocytes/100 leukocyt eson 06-29-2022 Monocytes/100 WBC (Bld) 7.6 % 0-10 [facility] Work Phone: Blood platelet mean volumeon 06-29-2022 Platelet mean volume (Bld) [Entitic vol] 10.3 fL 6.2-12.0 [facility] Work Phone: Determination of erythrocyte mean corpuscular volume (MCV)on 06-29-2022 MCV (RBC) [Entitic vol] 94.5 fL 81-99 [facility] Work Phone: Hematocrit Auto (Bld) [Volum e fraction]on 06-29-2022 Hematocrit (Bld) [Volume fraction] 46.1 % 37-47 [facility] Work Phone: Laboratory - Chemistry and C hemistry - challengeon 06-29-2022 ALP [Catalytic activity/Vol] 51 U/L 45-117 [facility] Work Phone: ALT [Catalytic activity/Vol] 26 U/L 13-56 [facility] Work Phone: CO2 [Moles/Vol] 27.0 mmol/L 21.0-32.0 [facility] Work Phone: Globulin (S) [Mass/Vol] 4.2 g/dL 2.2-4.2 [facility] Work Phone: Urea nitrogen/Creatinine [Mass ratio] 16.2 mg/mg 10-20 [facility] Work Phone: Laboratory - Hematology and Cell countson 06-29-2022 Erythrocyte distribution width (RBC) [Entitic vol] 44.5 fL 35.1-43.9 [facility] Work Phone: Erythrocyte distribution width (RBC) [Ratio] 13.1 % 11.6-14.6 [facility] Work Phone: Immature granulocytes/100 WBC (Bld) 0.200 % 0.0-0.9 [facility] Work Phone: Comment on above: IG% - Immature Granu locytes (promyelocytes, myelocytes and metamyelocytes) > 1% indicates that a LEFT SHIFT is Present. MCH (RBC) [Entitic mass] 30.7 pg 27.0-32.0 [facility] Work Phone: Nucleated RBC/100 WBC (Bld) [Ratio] 0 % 0-5 [facility] Work Phone: MCHC Auto (RBC) [Mass/Vol]on 06-29-2022 MCHC (RBC) [Mass/Vol] 32.5 g/dL 32-36 [facility] Work Phone: No Panel Informationon 06-29 Estimated GFR (MDRD) Amer 72 mL/min >60 [facility] Work Phone: Comment on above: GFR Calc Estimated GFR (MDRD) Non-Af Amer 60 mL/min >60 [facility] Work Phone: Comment on above: Non- GFR Calc Platelets bldon 06-29-2022 Platelets (Bld) [#/Vol] 183 10*3/uL 150-450 [facility] Work Phone: Serum or plasma albumin mana urement (mass/volume)on 06-29-2022 Albumin [Mass/Vol] 3.7 g/dL 3.2-5.0 [facility] Work Phone: Serum or plasma albumin/glob ulin mass ratioon 06-29-2022 Albumin/Globulin [Mass ratio] 0.9 {ratio} 0.9-2.4 [facility] Work Phone: Serum or plasma calcium mana urement (mass/volume)on 06-29-2022 Calcium [Mass/Vol] 9.2 mg/dL 8.5-10.1 [facility] Work Phone: Serum or plasma cholesterol in HDL measurement (mass/volume)on 06-29-2022 Cholesterol in HDL [Mass/Vol] 40 mg/dL >40 [facility] Work Phone: Comment on above: The drugs N-Acetylcy steine and Metamizole may falsely depress this assay. Reference Range HDL <40 mg/dL Low HDL Cholesterol HDL >or= 60 mg/dL High HDL Cholesterol Serum or plasma cholesterol in VLDL measurement (mass/volume)on 06-29-2022 Cholesterol in VLDL [Mass/Vol] 27 mg/dL 5-40 [facility] Work Phone: Serum or plasma creatinine m easurement (mass/volume)on 06-29-2022 Creatinine [Mass/Vol] 0.98 mg/dL 0.55-1.02 [facility] Work Phone: Comment on above: The validity of the calculated GFR & GFRAA in patients over 70 years has not been determined. Clinical correlation is essential. Serum or plasma low density lipoprotein (LDL) cholesterol measurement (mass/volume)on 06-29-2022 Cholesterol in LDL [Mass/Vol] 105 mg/dL 0-130 [facility] Work Phone: Serum or plasma urea nitroge n measurement (mass/volume)on 06-29-2022 Urea nitrogen [Mass/Vol] 16 mg/dL 7-18 [facility] Work Phone: Thin prep Papanicolaou smear with manual screeningon 06-29-2022 Thin prep Papanicolaou smear with manual screening 21 U/L 15-37 [facility] Work Phone: Thin prep Papanicolaou smear with manual screening 4 5-15 [facility] Work Phone: CNPNon 06-24-2022 CNPN Telephone ([facility]) ANA RAWLS ([id number]) 1955 F Date Time Provider Department 06/24/22 RASHEED CANO OBInvrep During your visit today, we recorded the [...] Status:Closed by LORE LOVE on 06/24/22 Normal [facility] Vital Signs Date Time Vital Sign Value Performing Clinician Faci lity 05-28-2025 07:39-0400 Body mass index (BMI) [Ratio] 45.4 kg/m2 Dr. Fiona Urena MD Work Phone: [facility] 05-28-2025 07:39-0400 Body weight 120.[address] Fiona Urena MD Work Phone: [facility] 05-28-2025 07:39-0400 Diastolic blood pressure 84 mm[Hg] Dr. Fiona Urena MD Work Phone: [facility] 05-28-2025 07:39-0400 Heart rate 68 /min Dr. Fiona Urena MD Work Phone: [facility] 05-28-2025 07:39-0400 Respiratory rate 18 /min Dr. Fiona Urena MD Work Phone: [facility] 05-28-2025 07:39-0400 SaO2% (BldA) [Mass fraction] 98 % Dr. Fiona Urena MD Work Phone: [facility] 05-28-2025 07:39-0400 Systolic blood pressure 131 mm[Hg] Dr. Fiona Urena MD Work Phone: [facility] 05-12-2025 06:41-0400 Body mass index (BMI) [Ratio] 44.8 kg/m2 Dr. Fiona Urena MD Work Phone: [facility] 05-12-2025 06:41-0400 Body weight 118.[address] Fiona Urena MD Work Phone: [facility] 05-12-2025 06:41-0400 Diastolic blood pressure 79 mm[Hg] Dr. Fiona Urena MD Work Phone: [facility] 05-12-2025 06:41-0400 Heart rate 70 /min Dr. Fiona Urena MD Work Phone: [facility] 05-12-2025 06:41-0400 Respiratory rate 18 /min Dr. Fiona Urena MD Work Phone: [facility] 05-12-2025 06:41-0400 SaO2% (BldA) [Mass fraction] 97 % Dr. Fiona Urena MD Work Phone: [facility] 05-12-2025 06:41-0400 Systolic blood pressure 124 mm[Hg] Dr. Fiona Urena MD Work Phone: [facility] 04-07-2025 06:55-0400 Body mass index (BMI) [Ratio] 45.4 kg/m2 Dr. Fiona Urena MD Work Phone: [facility] 04-07-2025 06:55-0400 Body weight 120.[address] Fiona Urena MD Work Phone: [facility] 04-07-2025 06:55-0400 Diastolic blood pressure 86 mm[Hg] Dr. Fiona Urena MD Work Phone: [facility] 04-07-2025 06:55-0400 Heart rate 57 /min Dr. Fiona Urena MD Work Phone: [facility] 04-07-2025 06:55-0400 Respiratory rate 18 /min Dr. Fiona Urena MD Work Phone: [facility] 04-07-2025 06:55-0400 SaO2% (BldA) [Mass fraction] 99 % Dr. Fiona Urena MD Work Phone: [facility] 04-07-2025 06:55-0400 Systolic blood pressure 162 mm[Hg] Dr. Fiona Urena MD Work Phone: [facility] 03-05-2025 10:34-0400 Body height 162.[address] Fiona Urena MD Work Phone: [facility] 03-05-2025 10:34-0400 Body mass index (BMI) [Ratio] 46.3 kg/m2 Dr. Fiona Urena MD Work Phone: [facility] 03-05-2025 10:34-0400 Body weight 122.[address] Fiona Urena MD Work Phone: [facility] 03-05-2025 10:34-0400 Diastolic blood pressure 96 mm[Hg] Dr. Fiona Urena MD Work Phone: [facility] 03-05-2025 10:34-0400 Heart rate 82 /min Dr. Fiona Urena MD Work Phone: [facility] 03-05-2025 10:34-0400 Respiratory rate 16 /min Dr. Fiona Urena MD Work Phone: [facility] 03-05-2025 10:34-0400 Systolic blood pressure 162 mm[Hg] Dr. Fiona Urena MD Work Phone: [facility] Encounters Encounter Date Encounter Type Care Provider Facility Start: 06-04-2025 ambulatory Fiona Urena Facility: [facility] Start: 05-28-2025 End: 05-28-2025 Patient encounter procedure Alberto SANTIAGO -[facility] Work Phone: Start: 05-28-2025 End: 05-28-[address] Fiona Urena MD Work Phone: -[facility] Start: 05-12-2025 End: 05-12-2025 Patient encounter procedure Alberto Chowdhury PA -[facility] Work Phone: Start: 05-12-2025 End: 05-12-[address] Fiona Urena MD Work Phone: [facility] Start: 04-15-2025 Non-patient / Non-visit Danielle ATKINS -[facility] Work Phone: Start: 04-15-2025 ambulatory [facility] Facility: [facility] Start: 04-11-2025 Non-patient / Non-visit Dr. Margo BAUTISTA -[facility] Start: 04-11-2025 End: 04-11-[address] Fiona Urena MD Work Phone: [facility] Work Phone: Start: 04-11-2025 End: 04-11-[address] Mitul Moore MD -[facility] Work Phone: Start: 04-11-2025 End: 04-11-2025 ambulatory Fiona Jacinta Facility:[facility] Start: 04-07-2025 End: 04-07-2025 Patient encounter procedure Alberto Chowdhury [place] -[facility] Work Phone: Start: 04-07-2025 End: 04-07-[address] Fiona Urena MD Work Phone: [facility] Work Phone: Start: 04-07-2025 End: 04-07-2025 ambulatory Alberto Chowdhury Facility:[facility] Start: 03-05-2025 End: 03-05-[address] Mitul Moore MD -[facility] Work Phone: Start: 03-05-2025 End: 03-05-2025 ambulatory Fiona Ayanna Facility:[facility] Start: 01-31-2025 End: 01-31-[address] Fiona Urena MD Work Phone: [facility] Work Phone: Start: 01-31-2025 End: 01-31-[address] Fiona Urena MD -Outpatient [facility] Work Phone: Start: 01-31-2025 End: 01-31-2025 ambulatory Fiona Urena Facility:[facility] Start: 08-26-2022 End: 08-26-2022 ambulatory [facility] Work Phone: Start: 08-26-2022 End: 08-26-2022 Patient encounter procedure [facility]patient [facility] Start: 07-20-2022 Documentation procedure Mammog kathy Coordinator [facility] Start: 07-20-2022 Letter encounter Mammography Coordinator [facility] Department Start: 07-20-2022 End: 07-20-2022 ambulatory FIONA URENA Facility:[facility] Start: 07-20-2022 End: 07-20-2022 Subsequent hospital visit by physician Screen Mammo [facility] Start: 06-29-2022 End: 06-29-2022 ambulatory [facility] Work Phone: Start: 06-29-2022 End: 06-29-2022 Patient encounter procedure [facility] Start: 06-24-2022 Telephone encounter Rasheed Cano [...] Activity Detail Author Start: 07-20-2023 Mammography MAMMOGRAM [facility] Start: 06-30-2022 Influenza vaccination INFLUENZA (#1) [facility] Start: 10-30-2021 ADVANCE DIRECTIVE DISCUSSION ADVANCE DIRECTIVE DISCUSSION [facility] Start: 01-11-2020 BONE DENSITY BONE DENSITY [facility] Start: 01-11-2020 PNEUMOCOCCAL: 65+ (1 - PCV) PNEUMOCOCCAL: 65+ (1 - PCV) [facility] Start: 06-19-2013 Mammography MAMMOGRAM [facility] Start: 02-11-2013 LIPID SCREEN LIPID SCREEN [facility] Start: 02-11-2011 DIABETES SCREEN DIABETES SCREEN [facility] Start: 2005 SHINGRIX VACCINE (1 of 2) SHINGRIX VACCINE (1 of 2) [facility] Start: 01-11-2000 COLOGUARD (FIT-DNA) COLOGUARD (FIT-DNA) [facility] Start: 01-11-2000 Colonoscopy COLONOSCOPY [facility] Start: 01-11-2000 COLORECTAL CANCER SCREENING COLORECTAL CANCER SCREENING [facility] Start: 01-11-[address] COLONOGRAPHY [facility] Start: 01-11-2000 FECAL OCCULT BLOOD FECAL OCCULT BLOOD [facility] Start: 01-11-2000 SIGMOIDOSCOPY SIGMOIDOSCOPY [facility] Start: 1974 Urine microalbumin profile DTAP,TDAP,TD (1 - Tdap) [facility] Start: 1973 HEPATITIS C SCREENING HEPATITIS C SCREENING [facility] Start: 1967 Adult depression screening assessment DEPRESSION SCREENING [facility] Start: 1955 COVID-19 VACCINE (#1) COVID-19 VACCINE (#1) [facility] Basic metabolic 2008 panel with ionized calcium - Serum or Plasma [facility] Basic metabolic 2008 panel with ionized calcium - Serum or Plasma [facility] NM Heart Views W str ess and W radionuclide IV [facility] Immunizations Immunization Date Immunization Notes Care Provider Fa ramanty 12-25-2021 tetanus toxoid, redu [place] diphtheria toxoid, and acellular pertussis vaccine, adsorbed [facility] 09-30-2017 influenza, injectabl e, quadrivalent, contains preservative Rasheed Cano MD Work Phone: [facility] Payers Date Payer Category Payer Self-pay [id number] 2020 Unknown [employer]UE CARD PPO OOS [id number] 2020-Present [phone] [address] [place] [address] PPO [id number] 2020 Unknown [id number] Unknown [id number] Unknown . [id number] Unknown [id number] Unknown [id number] Unknown [id number] Unknown [id number] Unknown [id number] Unknown [id number] Unknown [id number] Unknown [id number] Unknown [id number] Unknown [id number] Unknown [id number] Social History Date Type Detail Facility Start: 12-25-2021 End: 03-05-2025 Tobacco smoking status NHIS Never smoked tobacco [facility] Start: 06-15-2022 Alcohol intake Current non-dr pairer substandard of alcohol (finding) [facility] Start: 1955 Sex Assigned At Not on file [facility] Start: 12-25-2021 Tobacco smoking stat us NHIS Unknown if ever smoked [facility] Work Phone: Start: 1955 Sex Assigned At Female [facility] Start: 06-14-2022 End: 06-24-2022 Exposure to SARS-CoV-2 (event) Not sure [facility] Start: 02-05-2025 Sex Female (finding) [facility] Evaluation note 03-05-2025 Note Date & Type [...] block) acute April 07, 2025 1 0:48am [facility] Work Phone: Evaluation note 03-05-2025 Note Date & Type Note Facility 03-05-2025 Evaluation note Diagnosis Onset Date Resolution Aortic stenosis acute March 05, 2025 8:55am LBBB (left bundle branch block) acute March 05, 2025 8: 55am Chest discomfort resolved March 05, 2025 8:55am Aortic stenosis acute April 07, 2025 10:48am LBBB (left bundle branch block) acute April 07, 2025 10:48am Hypertension chronic April 07 10:48am Chest discomfort resolved March 10:48am [facility] Work Phone: Evaluation note 03-05-2025 Note Date & Type Note Facility 03-05-2025 Evaluation note Diagnosis Onset Date Resolution Aortic stenosis acute March 05, 2025 8:55am LBBB (left bundle branch block) acute March 05, 2025 8: 55am Chest discomfort resolved March 05, 2025 8:55am Aortic stenosis acute April 07, 2025 10:48am LBBB (left bundle branch block) acute April 07, 2025 10:48am Hypertension chronic April 07 10:48am Chest discomfort resolved March 10:48am Aortic stenosis acute April 8:46am Heart failure with reduced ejection fraction (HFrEF, <= 40%) acute May 12, 2025 8:46am LBBB (left bundle branch block) acute May 12, 2025 8:46am Hypertension chronic May 12 025 8:46am [facility] Work Phone: Evaluation note 03-05-2025 Note Date & Type Note Facility 03-05-2025 Evaluation note Diagnosis Onset Date Resolution Aortic stenosis acute March 05, 2025 8:55am LBBB (left bundle branch block) acute March 05, 2025 8: 55am Chest discomfort resolved March 05, 2025 8:55am Aortic stenosis acute April 07, 2025 10:48am LBBB (left bundle branch block) acute April 07, 2025 10:48am Hypertension chronic April 07 10:48am Chest discomfort resolved March 10:48am Aortic stenosis acute April 8:46am Heart failure with reduced ejection fraction (HFrEF, <= 40%) acute May 12, 2025 8:46am LBBB (left bundle branch block) acute May 12, 2025 8:46am Hypertension chronic May 12, 025 8:46am Aortic stenosis acute April 8:15am Heart failure with reduced ejection fraction (HFrEF, <= 40%) acute May 28, 2025 8:15am LBBB (left bundle branch block) acute May 28, 2025 8:15am Hypertension chronic May 28, 025 8:15am [facility] Work Phone: Progress note 07-20-2022 Note Date & Type Note Facility 07-20-2022 Note HNO ID: [id number] Author: RT Duc(R) Service: ? Author Type: [...] RT Duc(R) July 20, 2022 9:09 AM [facility] Note 07-20-2022 Letter - Mammography Coordinator - 07/20/2022 10:11 AM EDT Note Date & Type Note Facility 07-20-2022 Miscellaneous Notes Formattin g of this note might be different from the original. July 20, 2022 PID: [id number] Ana Rawls [id number] [place] [address] Dear Ms. Rawls, Your recent breast imaging exam on 07/20/2022 showed a possible finding that requires additional imaging studies for a complete evaluation. Most such findings are probably benign (not cancer). If you have a healthcare provider who ordered/prescribed your screening mammogram: Please call [phone] or [phone] to schedule an appointment for your additional [...] and reports are kept on file at [facility] as part of your permanent medical record, and are available for your continuing care. Thank you for allowing us to help in meeting your health care needs. Sincerely, Dr. Rooney Interpreting Radiologist [facility] (Additional imaging) documented in this encounter [facility] History of Present illness Narrative 07-20-2022 RT [...] 2022 9:09 AM documented in this encounter [facility] Note 06-24-2022 Telephone Encounter - Lore Love [...] listed. Lore Love documented in this encounter [facility] Evaluation note Note Date & Type Note Facility Evaluation note No assessment information availa [facility] Work Phone: Reason for referral (narrative) Note Date & Type Note Facility Reason for referral (narrative) No reason for referral information available [facility] Work Phone: Advance Directives No Advanced Directives Records Found Advance Directive Response Recorded Date/ Time Living Will No December 25 022 3:39pm Power of Hat Finishing Materials Preparer No December 25, 2021 3:39pm Summary Purpose [...] LBBB (left bundle branch block) March 10:48am Chief Complaint Admit Date SCREENING January 31, 2025 8:30 am LBBB/MURMUR (MIEDEL) March 05, 2025 8:55a m 1 M FU April 07, 2025 10:48 am INT LAB ORDER April 07, 2025 11:27 am MURMUR April 11, 2025 8:04 am Reason for Visit Admit Date Aortic stenosis March 05, 2025 8:55am LBBB (left bundle branch block) March 05, 2025 8:55am Chest discomfort March 05, 2025 8:55am Aortic stenosis April 07, 2025 10:48 am LBBB (left bundle branch block) March 10:48am Hypertension April 07, 2025 10:48 am Chest discomfort April 07, 2025 10:48 am Chief Complaint Admit Date SCREENING January 31, 2025 8:30 am LBBB/MURMUR (MIEDEL) March 05, 2025 8:55a m 1 M FU April 07, 2025 10:48 am INT LAB ORDER April 07, 2025 11:27 am MURMUR April 11, 2025 8:04 am Amb Documentation April 15, 2025 1:03 pm Chief Complaint Admit Date SCREENING January 31, 2025 8:30 am LBBB/MURMUR (MIEDEL) March 05, 2025 8:55a m 1 M FU April 07, 2025 10:48 am INT LAB ORDER April 07, 2025 11:27 am MURMUR April 11, 2025 8:04 am Amb Documentation April 15, 2025 1:03 pm 6 WK FU May 12, 2025 8:46 am Reason for Visit Admit Date Aortic stenosis March 05, 2025 8:55am LBBB (left bundle branch block) March 05, 2025 8:55am Chest discomfort March 05, 2025 8:55am Aortic stenosis April 07, 2025 10:48 am LBBB (left bundle branch block) March 10:48am Hypertension April 07, 2025 10:48 am Chest discomfort April 07, 2025 10:48 am Aortic stenosis May 12, 2025 8:46 am Heart failure with reduced ejection frac tion (HFrEF, <= 40%) May 12, 2025 8:46am LBBB (left bundle branch block) April 8:46am Hypertension May 12, 2025 8:46 am Chief Complaint Admit Date SCREENING January 31, 2025 8:30 am LBBB/MURMUR (MIEDEL) March 05, 2025 8:55a m 1 M FU April 07, 2025 10:48 am INT LAB ORDER April 07, 2025 11:27 am MURMUR April 11, 2025 8:04 am Amb Documentation April 15, 2025 1:03 pm 6 WK FU May 12, 2025 8:46 am 2 WK May 28, 2025 8:15 am Reason for Visit Admit Date Aortic stenosis March 05, 2025 8:55am LBBB (left bundle branch block) March 05, 2025 8:55am Chest discomfort March 05, 2025 8:55am Aortic stenosis April 07, 2025 10:48 am LBBB (left bundle branch block) March 10:48am Hypertension April 07, 2025 10:48 am Chest discomfort April 07, 2025 10:48 am Aortic stenosis May 12, 2025 8:46 am Heart failure with reduced ejection frac tion (HFrEF, <= 40%) May 12, 2025 8:46am LBBB (left bundle branch block) April 8:46am Hypertension May 12, 2025 8:46 am Aortic stenosis May 28, 2025 8:15 am Heart failure with reduced ejection frac tion (HFrEF, <= 40%) May 28, 2025 8:15am LBBB (left bundle branch block) April 8:15am Hypertension May 28, 2025 8:15 am Additional Source Comments Source Comments (unrecognize d section and content) In the event this informatio n is protected by the Federal Confidentiality of Alcohol and Drug Abuse Patient Records regulations: The Federal rules restrict any use of the information to criminally investigate or prosecute any alcohol or drug abuse patient.[facility] the event this information is protected by the Federal Confidentiality of Alcohol and Drug Abuse Patient Records regulations: The Federal rules restrict any use of the information to criminally investigate or prosecute any alcohol or drug abuse patient.[facility] the event this information is protected by the Federal Confidentiality of Alcohol and Drug Abuse Patient Records regulations: The Federal rules restrict any use of the information to criminally investigate or prosecute any alcohol or drug abuse patient.[facility] Reason for Visit (unrecogniz ed section and [...] section and content) DATE CREATED AUTHOR 08/21/2022 [facility] DATE CREATED AUTHOR AUTHOR'S ORGANIZ ATION 06/01/2025 [facility] Care Teams (unrecognized sec tion and content) [...] April 07, 2025 End: April 07, 2025 Team Status: Inactive Member Role Status Dates Dr. Fiona Urena MD Primary Care Provider Active Start: April 07, 2025 End: April 07, 2025 PAMELA Leyva Attending Provider Active St art: April 07, 2025 End: April 07, 2025 PAMELA Leyva Referring Provider Active St art: April 07, 2025 End: April 07, 2025 Team Status: Active Member Role Status Dates Dr. Fiona Urena MD Primary Care Provider Active Start: April 11, 2025 Dr. Mitul Moore MD Attending Provider Active S tart: April 11, 2025 Dr. Mitul Moore MD Referring Provider Active S tart: April 11, 2025 Team Status: Inactive Member Role Status Dates Dr. Fiona Urena MD Primary Care Provider Active Start: April 11, 2025 End: April 11, 2025 Dr. Mitul Moore MD Attending Provider Active S tart: April 11, 2025 End: April 11, 2025 Dr. Mitul Moore MD Referring Provider Active S tart: April 11, 2025 End: April 11, 2025 Team Status: Active Member Role Status Dates Dr. Fiona Urena MD Primary Care Provider Active Start: April 11, 2025 Dr. Mitul Moore MD Attending Provider Active S tart: April 11, 2025 Team Status: Active Member Role Status Dates Dr. Fiona Urena MD Primary Care Provider Active Start: April 15, 2025 Danielle Lozano [employer]EM[employer], [employer]-C Attending Provider Active Start: April 15, 2025 Team Status: Active Member Role/Relationship Status Dates Dr. Fiona Urena MD Primary Care Provider Active Team Status: Inactive Member Role/Relationship Status Dates Dr. Fiona Urena MD Primary Care Provider Active Start: January 31, 2025 End: January 31, 2025 Dr. Fiona Urena MD Attending Provider Active Start: January 31, 2025 End: January 31, 2025 Dr. Fiona Urena MD Referring Provider Active Start: January 31, 2025 End: January 31, 2025 Team Status: Inactive Member Role/Relationship Status Dates Dr. Fiona Urena MD Primary Care Provider Active Start: March 05, 2025 End: March 05, 2025 Dr. Fiona Urena MD Referring Provider Active Start: March 05, 2025 End: March 05, 2025 Dr. Mitul Moore MD Attending Provider Active S tart: March 05, 2025 End: March 05, 2025 Team Status: Inactive Member Role/Relationship Status Dates Dr. Fiona Urena MD Primary Care Provider Active Start: April 07, 2025 End: April 07, 2025 Dr. Fiona Urena MD Referring Provider Active Start: April 07, 2025 End: April 07, 2025 PAMELA Leyva Attending Provider Active St art: April 07, 2025 End: April 07, 2025 Team Status: Inactive Member Role/Relationship Status Dates Dr. Fiona Urena MD Primary Care Provider Active Start: April 07, 2025 End: April 07, 2025 PAMELA Leyva Attending Provider Active St art: April 07, 2025 End: April 07, 2025 PAMELA Leyva Referring Provider Active St art: April 07, 2025 End: April 07, 2025 Team Status: Inactive Member Role/Relationship Status Dates Dr. Fiona Urena MD Primary Care Provider Active Start: April 11, 2025 End: April 11, 2025 Dr. Mitul Moore MD Attending Provider Active S tart: April 11, 2025 End: April 11, 2025 Dr. Mitul Moore MD Referring Provider Active S tart: April 11, 2025 End: April 11, 2025 Team Status: Active Member Role/Relationship Status Dates Dr. Fiona Urena MD Primary Care Provider Active Start: April 11, 2025 Dr. Mitul Moore MD Attending Provider Active S tart: April 11, 2025 Team Status: Active Member Role/Relationship Status Dates Dr. Fiona Urena MD Primary Care Provider Active Start: April 15, 2025 Danielle Lozano NP, [employer]EM[employer]-C Attending Provider Active Start: April 15, 2025 Team Status: Inactive Member Role/Relationship Status Dates Dr. Fiona Urena MD Primary Care Provider Active Start: May 12, 2025 End: May 12, 2025 Dr. Fiona Urena MD Referring Provider Active Start: May 12, 2025 End: May 12, 2025 PAMELA Leyva Attending Provider Active St art: May 12, 2025 End: May 12, 2025 Team Status: Inactive Member Role/Relationship Status Dates Dr. Fiona Urena MD Primary Care Provider Active Start: May 28, 2025 End: May 28, 2025 Dr. Fiona Urena MD Referring Provider Active Start: May 28, 2025 End: May 28, 2025 PAMELA Leyva Attending Provider Active St art: May 28, 2025 End: May 28, 2025 FOR RECORDS PERTAINING TO PATIENTS WHO [...] BE BASED ON THE PRIMARY CLINICAL RECORDS. [employer] [facility]. provides no warranty or guarantee of the accuracy or completeness of information in this document.
--- NOTE | 2025-06-04 18:29 | STRESSREP_ITS ---
Stress Test Report Pharmacologic myocardial perfusion stress test. 70-year-old lady with a history of chest tightness Resting EKG demonstrates sinus rhythm with a left bundle branch block with a rate of 73 bpm. Resting blood pressure is 130/72 mmHg. 0.4 mg of regadenoson was infused per usual protocol followed by rapid intravenous saline flush injection. Continuous EKG monitoring was performed. The maximum heart rate was 94 bpm which was 62% of max impacted heart rate the maximum workload was 1 metabolic equivalent. At rest there were no ST or T wave changes noted to suggest ischemia and at peak infusion nonspecific ST changes were noted which did not meet the criteria for ischemia. No clinical angina is noted. The final blood pressure was 124/72 mmHg. Myocardial perfusion protocol. 15 mCi of technetium 99m sestamibi was injected at rest. 0.4 mg of regadenoson was infused per usual protocol. At peak infusion 45 mCi of technetium 99m se stamibi was injected stress images were obtained stress and rest images were reconstructed and compared in the short axis vertical long and horizontal long axis. Gated images were also obtained. Perfusion SPECT analysis: Review of the stress images demonstrate normal uptake of tracer noted in all areas of the myocardium. There is however a medium size area noted involving the anterior septal wall towards the apex and the lateral apex with reduced perfusion. The resting images demonstrate a similar pattern. The above is suggestive of either previous infarct in this area or perhaps the bundle branch block abnormality. No reversibility is noted suggest ischemia. Gated SPECT analysis: The gated ejection fraction is 42%. 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 No ischemia noted Mildly reduced ejection fraction
== END | disposition home or self-care (01) ==
PROVIDERS: PCP Family Medicine; Referring Provider Student in an Organized Health Care Education/Training Program; Visit Provider Student in an Organized Health Care Education/Training Program
DX: I50.20 Unspecified systolic (congestive) heart failure (principal); I44.7 Left bundle-branch block, unspecified
CPT/HCPCS: 78452; 93017; A9500; A4216; J2785

== ENCOUNTER → 2025-06-12 | Outpatient (CLI) | payer BC, SELFPAY ==
[2025-06-12 16:03] LABS: Anion Gap 14 (5-15); BUN 23 mg/dL (4-19); BUN/Creat Ratio 19.6 RATIO (10-20); Calcium,Total 9.9 mg/dL (7.6-11.0); Carbon Dioxide 21.2 mmol/L (21.0-32.0); Chloride 106 mmol/L (98-108); Glucose 100 mg/dL (70-99); Potassium 5.2 mmol/L (3.3-5.1)
--- OUTSIDE RECORDS SUMMARY | 2025-06-12 20:19 | XMS RPT_ITS | CCD ---
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 2.0-7.7 [facility] Work Phone: Neutrophils/100 WBC (Bld) 56.1 % 47-70 [facility] Work Phone: Potassium [Moles/Vol] 4.2 mmol/L 3.5-5.1 [facility] Work Phone: Protein [Mass/Vol] 7.9 g/dL 6.4-8.2 [facility] Work Phone: Sodium [Moles/Vol] 140 mmol/L 136-145 [facility] Work Phone: Triglyceride [Mass/Vol] 135 mg/dL <199 [facility] Work Phone: Comment on above: The drugs N-Acetylcy steine and Metamizole may falsely depress this assay.Serum Triglycerides Reference Interval Normal <150 mg/dL Borderline high 150 - 199 mg/dL High 200 - 499 mg/dL Very High > or = 500 mg/dL WBC (Bld) [#/Vol] 5.2 10*3/uL 4.4-11.0 [facility] Work Phone: Blood erythrocytes count (nu mber/volume)on 06-29-2022 RBC (Bld) [#/Vol] 4.88 10*6/uL 4.2-5.4 [facility] Work Phone: Blood hemoglobin measurement (mass/volume)on 06-29-2022 Hemoglobin (Bld) [Mass/Vol] 15.0 g/dL 12.0-15.0 [facility] Work Phone: Blood lymphocytes/100 leukoc yteson 06-29-2022 Lymphocytes/100 WBC (Bld) 28.3 % 19-41 [facility] Work Phone: Blood monocytes/100 leukocyt eson 06-29-2022 Monocytes/100 WBC (Bld) 7.6 % 0-10 [facility] Work Phone: Blood platelet mean volumeon 06-29-2022 Platelet mean volume (Bld) [Entitic vol] 10.3 fL 6.2-12.0 [facility] Work Phone: Determination of erythrocyte mean corpuscular volume (MCV)on 06-29-2022 MCV (RBC) [Entitic vol] 94.5 fL 81-99 [facility] Work Phone: Hematocrit Auto (Bld) [Volum e fraction]on 06-29-2022 Hematocrit (Bld) [Volume fraction] 46.1 % 37-47 [facility] Work Phone: Laboratory - Chemistry and C hemistry - challengeon 06-29-2022 ALP [Catalytic activity/Vol] 51 U/L 45-117 [facility] Work Phone: ALT [Catalytic activity/Vol] 26 U/L 13-56 [facility] Work Phone: CO2 [Moles/Vol] 27.0 mmol/L 21.0-32.0 [facility] Work Phone: Globulin (S) [Mass/Vol] 4.2 g/dL 2.2-4.2 [facility] Work Phone: Urea nitrogen/Creatinine [Mass ratio] 16.2 mg/mg 10-20 [facility] Work Phone: Laboratory - Hematology and Cell countson 06-29-2022 Erythrocyte distribution width (RBC) [Entitic vol] 44.5 fL 35.1-43.9 [facility] Work Phone: Erythrocyte distribution width (RBC) [Ratio] 13.1 % 11.6-14.6 [facility] Work Phone: Immature granulocytes/100 WBC (Bld) 0.200 % 0.0-0.9 [facility] Work Phone: Comment on above: IG% - Immature Granu locytes (promyelocytes, myelocytes and metamyelocytes) > 1% indicates that a LEFT SHIFT is Present. MCH (RBC) [Entitic mass] 30.7 pg 27.0-32.0 [facility] Work Phone: Nucleated RBC/100 WBC (Bld) [Ratio] 0 % 0-5 [facility] Work Phone: MCHC Auto (RBC) [Mass/Vol]on 06-29-2022 MCHC (RBC) [Mass/Vol] 32.5 g/dL 32-36 [facility] Work Phone: No Panel Informationon 06-29 Estimated GFR (MDRD) Amer 72 mL/min >60 [facility] Work Phone: Comment on above: GFR Calc Estimated GFR (MDRD) Non-Af Amer 60 mL/min >60 [facility] Work Phone: Comment on above: Non- GFR Calc Platelets bldon 06-29-2022 Platelets (Bld) [#/Vol] 183 10*3/uL 150-450 [facility] Work Phone: Serum or plasma albumin mana urement (mass/volume)on 06-29-2022 Albumin [Mass/Vol] 3.7 g/dL 3.2-5.0 [facility] Work Phone: Serum or plasma albumin/glob ulin mass ratioon 06-29-2022 Albumin/Globulin [Mass ratio] 0.9 {ratio} 0.9-2.4 [facility] Work Phone: Serum or plasma calcium mana urement (mass/volume)on 06-29-2022 Calcium [Mass/Vol] 9.2 mg/dL 8.5-10.1 [facility] Work Phone: Serum or plasma cholesterol in HDL measurement (mass/volume)on 06-29-2022 Cholesterol in HDL [Mass/Vol] 40 mg/dL >40 [facility] Work Phone: Comment on above: The drugs N-Acetylcy steine and Metamizole may falsely depress this assay. Reference Range HDL <40 mg/dL Low HDL Cholesterol HDL >or= 60 mg/dL High HDL Cholesterol Serum or plasma cholesterol in VLDL measurement (mass/volume)on 06-29-2022 Cholesterol in VLDL [Mass/Vol] 27 mg/dL 5-40 [facility] Work Phone: Serum or plasma creatinine m easurement (mass/volume)on 06-29-2022 Creatinine [Mass/Vol] 0.98 mg/dL 0.55-1.02 [facility] Work Phone: Comment on above: The validity of the calculated GFR & GFRAA in patients over 70 years has not been determined. Clinical correlation is essential. Serum or plasma low density lipoprotein (LDL) cholesterol measurement (mass/volume)on 06-29-2022 Cholesterol in LDL [Mass/Vol] 105 mg/dL 0-130 [facility] Work Phone: Serum or plasma urea nitroge n measurement (mass/volume)on 06-29-2022 Urea nitrogen [Mass/Vol] 16 mg/dL 7-18 [facility] Work Phone: Thin prep Papanicolaou smear with manual screeningon 06-29-2022 Thin prep Papanicolaou smear with manual screening 21 U/L 15-37 [facility] Work Phone: Thin prep Papanicolaou smear with manual screening 4 5-15 [facility] Work Phone: CNPNon 06-24-2022 CNPN Telephone (OBGYW) ANA RAWLS ([id number]) 1955 F Date Time Provider Department 06/24/22 RASHEED CANO During your visit today, we recorded the [...] Status:Closed by LORE LOVE on 06/24/[address] [facility] Vital Signs Date Time Vital Sign Value Performing Clinician Isabel almazan 05-28-2025 07:39-0400 Body mass index (BMI) [Ratio] 45.4 kg/m2 Dr. Fiona Urena MD Work Phone: [facility] 05-28-2025 07:39-0400 Body weight 120.[address] Fiona Urena MD Work Phone: [facility] 05-28-2025 07:39-0400 Diastolic blood pressure 84 mm[Hg] Dr. Fiona Urena MD Work Phone: [facility] 05-28-2025 07:39-0400 Heart rate 68 /min Dr. Fiona Urena MD Work Phone: [facility] 05-28-2025 07:39-0400 Respiratory rate 18 /min Dr. Fiona Urena MD Work Phone: [facility] 05-28-2025 07:39-0400 SaO2% (BldA) [Mass fraction] 98 % Dr. Fiona Urena MD Work Phone: [facility] 05-28-2025 07:39-0400 Systolic blood pressure 131 mm[Hg] Dr. Fiona Urena MD Work Phone: [facility] 05-12-2025 06:41-0400 Body mass index (BMI) [Ratio] 44.8 kg/m2 Dr. Fiona Urena MD Work Phone: [facility] 05-12-2025 06:41-0400 Body weight 118.[address] Fiona Urena MD Work Phone: [facility] 05-12-2025 06:41-0400 Diastolic blood pressure 79 mm[Hg] Dr. Fiona Urena MD Work Phone: [facility] 05-12-2025 06:41-0400 Heart rate 70 /min Dr. Fiona Urena MD Work Phone: [facility] 05-12-2025 06:41-0400 Respiratory rate 18 /min Dr. Fiona Urena MD Work Phone: [facility] 05-12-2025 06:41-0400 SaO2% (BldA) [Mass fraction] 97 % Dr. Fiona Urena MD Work Phone: [facility] 05-12-2025 06:41-0400 Systolic blood pressure 124 mm[Hg] Dr. Fiona Urena MD Work Phone: [facility] 04-07-2025 06:55-0400 Body mass index (BMI) [Ratio] 45.4 kg/m2 Dr. Fiona Urena MD Work Phone: [facility] 04-07-2025 06:55-0400 Body weight 120.[address] Fiona rUena MD Work Phone: [facility] 04-07-2025 06:55-0400 Diastolic blood pressure 86 mm[Hg] Dr. Fiona Urena MD Work Phone: [facility] 04-07-2025 06:55-0400 Heart rate 57 /min Dr. Fiona Urena MD Work Phone: [facility] 04-07-2025 06:55-0400 Respiratory rate 18 /min Dr. Fiona Urena MD Work Phone: [facility] 04-07-2025 06:55-0400 SaO2% (BldA) [Mass fraction] 99 % Dr. Fiona Urena MD Work Phone: [facility] 04-07-2025 06:55-0400 Systolic blood pressure 162 mm[Hg] Dr. Fiona Urena MD Work Phone: [facility] 03-05-2025 10:34-0400 Body height 162.[address] Fiona Urena MD Work Phone: [facility] 03-05-2025 10:34-0400 Body mass index (BMI) [Ratio] 46.3 kg/m2 Dr. Fiona Urena MD Work Phone: [facility] 03-05-2025 10:34-0400 Body weight 122.[address] Fiona Urena MD Work Phone: [facility] 03-05-2025 10:34-0400 Diastolic blood pressure 96 mm[Hg] Dr. Fiona Urena MD Work Phone: [facility] 03-05-2025 10:34-0400 Heart rate 82 /min Dr. Fiona Urena MD Work Phone: [facility] 03-05-2025 10:34-0400 Respiratory rate 16 /min Dr. Fiona Urena MD Work Phone: [facility] 03-05-2025 10:34-0400 Systolic blood pressure 162 mm[Hg] Dr. Fiona Urena MD Work Phone: [facility] Encounters Encounter Date Encounter Type Care Provider Facility Start: 06-04-2025 ambulatory Mitul Moore Facility:[facility] Start: 06-04-2025 Non-patient / Non-visit Dr. Margo BAUTISTA [facility] Start: 06-04-2025 End: 06-04-[address] Fiona Urena MD Work Phone: -Cardiovascular Services Start: 06-04-2025 End: 06-04-2025 Patient encounter procedure Alberto Demiter PA -Cardiovascular Services Work Phone: Start: 06-04-2025 End: 06-04-2025 ambulatory Alberto Demiter Facility:[facility] Start: 05-28-2025 Patient encounter procedure Alberto Demiter PA -Laboratory Work Phone: Start: 05-28-2025 End: 05-28-2025 Patient encounter procedure Alberto Demiter PA -[facility] Work Phone: Start: 05-28-2025 End: 05-28-[address] Fiona Urena MD Work Phone: -[facility] Start: 05-12-2025 End: 05-12-2025 Patient encounter procedure Alberto Demiter PA -[facility] Work Phone: Start: 05-12-2025 End: 05-12-[address] Fiona Urena MD Work Phone: [facility] Start: 04-15-2025 Non-patient / Non-visit Danielle reyes CHARGING BOARD OPERATOR-C -[facility] Work Phone: Start: 04-15-2025 ambulatory Danielle Lozano NP Facili ty:[facility] Start: 04-11-2025 Non-patient / Non-visit Dr. Margo [facility]UTISTA [facility] Start: 04-11-2025 End: 04-11-[address] Fiona Urena MD Work Phone: [facility] Work Phone: Start: 04-11-2025 End: 04-11-[address] Mitul Moore MD -Cardiovascular Services Work Phone: Start: 04-11-2025 End: 04-11-2025 ambulatory [facility] Facility:[facility] Start: 04-07-2025 End: 04-07-2025 Patient encounter procedure Alberto SANTIAGO -[facility] Work Phone: Start: 04-07-2025 End: 04-07-[address] Fiona Urena MD Work Phone: [facility] Work Phone: Start: 04-07-2025 End: [facility] Start: 03-05-2025 End: 03-05-[address] Mitul Moore MD -[facility] Work Phone: Start: 03-05-2025 End: 03-05-2025 ambulatory Mitul Moore Facility:[facility] Start: 01-31-2025 End: 01-31-[address] Fiona Urena MD Work Phone: [facility] Work Phone: Start: 01-31-2025 End: 01-31-[address] Fiona Urena MD -Outpatient Breast Imaging Work Phone: Start: 01-31-2025 End: 01-31-2025 ambulatory Fiona Urena Facility:[facility] Start: 08-26-2022 End: 08-26-2022 ambulatory [facility] Work Phone: Start: 08-26-2022 End: 08-26-2022 Patient encounter procedure [facility]-Outpatient Breast Imaging Start: 07-20-2022 Documentation procedure Mammog kathy Coordinator [facility] Start: 07-20-2022 Letter encounter Mammography Coordinator [facility] Department Start: 07-20-2022 End: 07-20-2022 ambulatory FIONA URENA Facility:[facility] Start: 07-20-2022 End: 07-20-2022 Subsequent hospital visit by physician Screen Mammo [facility] Mamm[facility] Start: 06-29-2022 End: 06-29-2022 ambulatory [facility] Work Phone: Start: 06-29-2022 End: 06-29-2022 Patient encounter procedure [facility]-Laboratory Start: 06-24-2022 Telephone encounter Rasheed Cano MD Work Phone: OB/Gynecology Comment on above: Appointment (Replayi ng to fax referral. More information needed what the consult is for. Tried calling patient but the phone number given isn't in service. Patient doesn't have usable email listed. ) Procedures Date Procedure Procedure Detail Performing Clinician Start: 06-04-2025 Cardiovascular stres s test using pharmacologic stress agent Dr. Fiona Urena MD Work Phone: Start: 03-05-2025 Evaluation of diagno stic study [...] Activity Detail Author Start: 07-20-2023 Mammography MAMMOGRAM [facility] Start: 06-30-2022 Influenza vaccination INFLUENZA (#1) [facility] Start: 10-30-2021 ADVANCE DIRECTIVE DISCUSSION ADVANCE DIRECTIVE DISCUSSION [facility] Start: 01-11-2020 BONE DENSITY BONE DENSITY [facility] Start: 01-11-2020 PNEUMOCOCCAL: 65+ (1 - PCV) PNEUMOCOCCAL: 65+ (1 - PCV) [facility] Start: 06-19-2013 Mammography MAMMOGRAM [facility] Start: 02-11-2013 LIPID SCREEN LIPID SCREEN [facility] Start: 02-11-2011 DIABETES SCREEN DIABETES SCREEN [facility] Start: 2005 SHINGRIX VACCINE (1 of 2) SHINGRIX VACCINE (1 of 2) [facility] Start: 01-11-2000 COLOGUARD (FIT-DNA) COLOGUARD (FIT-DNA) [facility] Start: 01-11-2000 Colonoscopy COLONOSCOPY [facility] Start: 01-11-2000 COLORECTAL CANCER SCREENING COLORECTAL CANCER SCREENING [facility] Start: 01-11-[address] COLONOGRAPHY [facility] Start: 01-11-2000 FECAL OCCULT BLOOD FECAL OCCULT BLOOD [facility] Start: 01-11-2000 SIGMOIDOSCOPY SIGMOIDOSCOPY [facility] Start: 1974 Urine microalbumin profile DTAP,TDAP,TD (1 - Tdap) [facility] Start: 1973 HEPATITIS C SCREENING HEPATITIS C SCREENING [facility] Start: 1967 Adult depression screening assessment DEPRESSION SCREENING [facility] Start: 1955 COVID-19 VACCINE (#1) COVID-19 VACCINE (#1) [facility] Basic metabolic 2008 panel with ionized calcium - Serum or Plasma [facility] Basic metabolic 2008 panel with ionized calcium - Serum or Plasma [facility] Basic metabolic 2008 panel with ionized calcium - Serum or Plasma [facility] NM Heart Views W str ess and W radionuclide IV [facility] Immunizations Immunization Date Immunization Notes Care Provider Fa lexa 12-25-2021 tetanus toxoid, redu [place] diphtheria toxoid, and acellular pertussis vaccine, adsorbed [facility] 09-30-2017 influenza, injectabl e, quadrivalent, contains preservative Rasheed Cano MD Work Phone: [facility] Payers Date Payer Category Payer Unknown [id number] 2025 Self-pay [id number] 2020 Unknown [employer] BL[employer] CARD PPO OOS [id number] 2020-Present [phone] [address] [place] [address] PPO [id number] 2020 Unknown [id number] Unknown [id number] Unknown . [id number] Unknown [id number] Unknown [id number] Unknown [id number] Unknown [id number] Unknown [id number] Unknown [id number] Unknown [id number] Unknown [id number] Unknown [id number] Unknown [id number] Unknown [id number] Unknown [id number] Social History Date Type Detail Facility Start: 12-25-2021 End: 03-05-2025 Tobacco smoking status NHIS Never smoked tobacco [facility] Start: 06-15-2022 Alcohol intake 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 (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) [facility] Start: 1955 Sex Assigned At Not on file [facility] Start: 12-25-2021 Tobacco smoking stat us ORIS Unknown if ever smoked [facility] Work Phone: Start: 1955 Sex Assigned At Female [facility] Start: 06-14-2022 End: 06-24-2022 Exposure to SARS-CoV-2 (event) Not sure [facility] Start: 02-05-2025 Sex Female (finding) [facility] Evaluation note 03-05-2025 Note Date & Type [...] block) acute April 07, 2025 1 0:48am [facility] Work Phone: Evaluation note 03-05-2025 Note Date [...] 07 10:48am Chest discomfort resolved March 10:48am [facility] Work Phone: Evaluation note 03-05-2025 Note [...] 8:46am Hypertension chronic May 12 025 8:46am [facility] Work Phone: Evaluation note 03-05-2025 Note Date [...] 12, 2025 8:46am Hypertension chronic May 12, 2 025 8:46am Aortic stenosis acute April 8:15am Heart failure with reduced ejection fraction (HFrEF, <= 40%) acute May 28, 2025 8:15am LBBB (left bundle branch block) acute May 28, 2025 8:15am Hypertension chronic May 28 8:15am [facility] Work Phone: Progress note 07-20-2022 Note Date & Type Note Facility 07-20-2022 Note HNO ID: [id number] Author: RT Duc(R) Service: ? Author Type: [...] IV DATA: Not applicable SIGNED BY: RT uDc(R) July 20, 2022 9:[address] [facility] Note 07-20-2022 Letter - Mammography Coordinator - 07/20/2022 10:11 AM EDT Note Date & Type Note Facility 07-20-2022 Miscellaneous Notes Formattin g of this note might be different from the original. July 20, 2022 PID: [id number] Ana Rawls [address] [place] [address] Dear Ms. Rawls, Your recent breast imaging exam on 07/20/2022 showed a possible finding that requires additional imaging studies for a complete evaluation. Most such findings are probably benign (not cancer). If you have a healthcare provider who ordered/prescribed your screening mammogram: Please call [phone] or EXT: [id number] to schedule an appointment for your additional [...] and reports are kept on file at [facility] as part of your permanent medical record, and are available for your continuing care. Thank you for allowing us to help in meeting your health care needs. Sincerely, Dr. Rooney Interpreting Radiologist [facility] (Additional imaging) documented in this encounter [facility] History of Present illness Narrative 07-20-2022 [...] 2022 9:09 AM documented in this encounter [facility] Note 06-24-2022 Telephone Encounter - Lore [...] listed. Lore Love documented in this encounter [facility] Evaluation note Note Date & Type Note Facility Evaluation note No assessment information availa ble [facility] Work Phone: Reason for referral (narrative) Note Date & Type Note Facility Reason for referral (narrative) No reason for referral information available [facility] Work Phone: Advance Directives No Advanced Directives Records Found Advance Directive Response Recorded Date/ Time Living Will No December 25, 2 022 3:39pm Power of Chef Head No December 25, 2021 3:39pm Summary Purpose [...] April 15, 2025 1:03 pm 6 WK May 12, 2025 8:46 am 2 WK [...] 8:15am Hypertension May 28, 2025 8:15 am Chief Complaint Admit Date LBBB/MURMUR (MIEDEL) March 05, 2025 8:55a m 1 M FU April 07, 2025 10:48 am INT LAB ORDER April 07, 2025 11:27 am MURMUR April 11, 2025 8:04 am Amb Documentation April 15, 2025 1:03 pm 6 WK FU May 12, 2025 8:46 am 2 WK FU May 28, 2025 8:15 am E-ORDER May 28, 2025 10:0 0am LBBB, HRrEF June 04, 2025 6:4 3am LBBB, HRrEF June 04, 2025 6:2 9pm Additional Source Comments Source Comments (unrecognize d section and content) In the event this informatio n is protected by the Federal Confidentiality of Alcohol and Drug Abuse Patient Records regulations: The Federal rules restrict any use of the information to criminally investigate or prosecute any alcohol or drug abuse patient.[facility] the event this information is protected by the Federal Confidentiality of Alcohol and Drug Abuse Patient Records regulations: The Federal rules restrict any use of the information to criminally investigate or prosecute any alcohol or drug abuse patient.[facility] the event this information is protected by the Federal Confidentiality of Alcohol and Drug Abuse Patient Records regulations: The Federal rules restrict any use of the information to criminally investigate or prosecute any alcohol or drug abuse patient.[facility] Reason for Visit (unrecogniz ed section [...] section and content) DATE CREATED AUTHOR 08/21/2022 [facility] DATE CREATED AUTHOR AUTHOR'S ROSELINE ATION 06/10/2025 [facility] Care Teams (unrecognized sec tion [...] Active Start: April 15, 2025 Danielle Lozano CHARGING BOARD OPERATOR, CHARGING BOARD OPERATOR-C Attending Provider Active Start: April 15, 2025 [...] Active Start: April 15, 2025 Danielle Lozano CHARGING BOARD OPERATOR, CHARGING BOARD OPERATOR-C Attending Provider Active Start: April 15, 2025 [...] May 28, 2025 End: May 28, 2025 Team Status: Inactive Member Role/Relationship Status [...] Active Start: April 15, 2025 Danielle Lozano CHARGING BOARD OPERATOR, CHARGING BOARD OPERATOR-C Attending Provider Active Start: April 15, 2025 [...] May 28, 2025 End: May 28, 2025 Alberto Chowdhury , PA Attending Provider Active St art: May 28, 2025 End: May 28, 2025 Team Status: Active Member Role/Relationship Status Dates Dr. Fiona Urena MD Primary Care Provider Active Start: May 28, 2025 Alberto Chowdhury , [place] Attending Provider Active St art: May 28, 2025 Alberto Demiter , PA Referring Provider Active St art: May 28, 2025 Team Status: Inactive Member Role/Relationship Status Dates Dr. Fiona Urena MD Primary Care Provider Active Start: June 04, 2025 End: June 04, 2025 Alberto Caryiter , PA Attending Provider Active St art: June 04, 2025 End: June 04, 2025 Alberto Demiter , PA Referring Provider Active St art: June 04, 2025 End: June 04, 2025 Team Status: Active Member Role/Relationship Status Dates Dr. Fiona Urena MD Primary Care Provider Active Start: June 04, 2025 Alberto Caryiter , PA Referring Provider Active St art: June 04, 2025 Alberto Demiter , PA Other Provider Active Start: June 04, 2025 Dr. Mitul Moore MD Attending Provider Active S tart: June 04, 2025 FOR RECORDS PERTAINING TO PATIENTS WHO [...] BE BASED ON THE PRIMARY CLINICAL RECORDS. [employer]. provides no warranty or guarantee of the accuracy or completeness of information in this document.
== END | disposition home or self-care (01) ==
LOC: LAB 14:55
PROVIDERS: PCP Family Medicine; Referring Provider Student in an Organized Health Care Education/Training Program; Visit Provider Student in an Organized Health Care Education/Training Program
DX: I50.20 Unspecified systolic (congestive) heart failure (principal)
CPT/HCPCS: 36415; 80048

== ENCOUNTER → 2025-06-24 | Outpatient (CLI) | payer BC, SELFPAY ==
[2025-06-24 17:49] LABS: Anion Gap 15 (5-15); BUN 21 mg/dL (4-19); BUN/Creat Ratio 18.0 RATIO (10-20); Calcium,Total 10.1 mg/dL (7.6-11.0); Carbon Dioxide 21.3 mmol/L (21.0-32.0); Chloride 105 mmol/L (98-108); Glucose 100 mg/dL (70-99); Potassium 4.5 mmol/L (3.3-5.1)
== END | disposition home or self-care (01) ==
LOC: LAB 16:13
PROVIDERS: PCP Family Medicine; Referring Provider Student in an Organized Health Care Education/Training Program; Visit Provider Student in an Organized Health Care Education/Training Program
DX: E87.5 Hyperkalemia (principal)
CPT/HCPCS: 36415; 80048

== ENCOUNTER → 2025-10-01 | Outpatient (CLI) | payer BC, SELFPAY ==
--- NOTE | 2025-10-01 08:36 | ECHOL_ITS ---
Reason For Study Reason For Study: CHF, reduced EF Procedure This was a limited 2D transthoracic echocardiogram. The study was technically difficult. Exam performed in department. Left Ventricle Normal LV size. Mid cavitary false tendon noted. The left ventricular ejection fraction is 50 %. Septal motion consistent with bundle branch block. There is mild global hypokinesis of the left ventricle. Right Ventricle Normal RV size. Normal systolic function. Atria Normal left atrium. Normal right atrium. Mitral Valve There is moderate to severe mitral annular calcification. Tricuspid Valve Normal tricuspid valve. Aortic Valve Trisinus/trileaflet aortic valve. Pulmonic Valve Normal pulmonic valve. Great Vessels Normal aortic root. The pulmonary artery is normal size. Normal inferior vena cava. Pericardium/Pleural No pericardial effusion. MMode/2D Measurements & Calculations LVIDd: 4.6 cm IVSd: 1.5 cm Ao root diam: 3.3 cm LVIDs: 3.5 cm LVPWd: 1.1 cm FS: 22.9 % LAV(MOD-bp): 46.3 ml LVAd ap4: 33.6 cm2 LVAd ap2: 33.8 cm2 LAV(MOD-bp) Indexed: 21.4 ml/m2 LVLd ap4: 8.3 cm LVLd ap2: 8.5 cm LAV(MOD-sp2): 52.3 ml EDV(MOD-sp4): 112.6 ml EDV(MOD-sp2): 109.3 ml LAV(MOD-sp4): 37.0 ml EDV(sp4-el): 115.1 ml EDV(sp2-el): 114.4 ml LVAs ap4: 23.3 cm2 LVAs ap2: 22.6 cm2 LVLs ap4: 7.4 cm LVLs ap2: 7.6 cm ESV(MOD-sp4): 62.7 ml ESV(MOD-sp2): 56.7 ml ESV(sp4-el): 61.9 ml ESV(sp2-el): 57.3 ml EF(MOD-sp4): 44.3 % EF(MOD-sp2): 48.1 % EF(sp4-el): 46.3 % SV(MOD-sp4): 49.9 ml SV(MOD-sp2): 52.6 ml SV(sp4-el): 53.2 ml SI(MOD-sp4): 23.1 ml/m2 SI(MOD-sp2): 24.3 ml/m2 LA A4 area: 15.4 cm2 LA dimension(2D): 4.2 cm RA A4 area: 12.8 cm2 ECHO/Echo, Limited Study Interpretation Summary Normal LV size. Mid cavitary false tendon noted. The left ventricular ejection fraction is 50 %. Septal motion consistent with bundle branch block. Ordering Physician: Alberto Chowdhury Referring Physician: Fiona Urena Performed By: Judy San RDCS, RVT
== END | disposition home or self-care (01) ==
LOC: CVS 08:36
PROVIDERS: PCP Family Medicine; Referring Provider Student in an Organized Health Care Education/Training Program; Visit Provider Student in an Organized Health Care Education/Training Program
DX: I50.20 Unspecified systolic (congestive) heart failure (principal)
CPT/HCPCS: 93308

== ENCOUNTER → 2025-10-14 | Outpatient (CLI) | payer BC, SELFPAY ==
--- NOTE | 2025-10-14 09:35 | EKG12_ITS ---
Test Reason : PREOP Blood Pressure : */* mmHG Vent. Rate : 68 BPM Atrial Rate : 68 BPM P-R Int : 178 ms QRS Dur : 152 ms QT Int : 460 ms P-R-T Axes : 64 11 181 degrees QTcB Int : 489 ms Normal sinus rhythm Left bundle branch block Abnormal ECG Confirmed by HELENE BAUTISTA, RAMBO ([id number]), electronic news gathering editor DIXIE WATERS ([id number]) on 10/15/2025 8:24:50 AM Referred By: Arley Valdovinos Confirmed By: RAMBO NARAYAN MD
[2025-10-14 11:00] LABS: Hematocrit 43.6 % (37-47); Hemoglobin 14.3 g/dL (12.0-15.0); Immature Granulocytes Count 0.010 X10^3/uL (0.0-0.0); Mean Corp Hgb Conc 32.8 g/dL (32-36); Mean Corpuscular Volume 98.2 fL (81-99); Mean Platelet Vol. 11.4 fl (6.2-12.0); NRBC Flagged by Analyzer 0 % (0-5); Platelet Count 189 K/mm3 (150-450); RBC Distribution Width CV 12.6 % (11.6-14.6); RBC Distribution Width SD 45.8 fl (35.1-43.9); Red Blood Count 4.44 M/mm3 (4.2-5.4); White Blood Count 6.6 K/mm3 (4.4-11.0)
--- OUTSIDE RECORDS SUMMARY | 2025-10-14 11:10 | XMS RPT_ITS | CCD ---
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 be mailed to the patient. Reading Location: [facility] CC: Dr. Fiona Urena MD ~ Consumer Electronic Retail Specialist: Signed [facility] SCRN MAMM (CAD)W/KANA BILATo n 01-31-2025 SCRN MAMM (CAD)W/KANA BILAT [facility] Imaging Services [address] [place] [id number] SCRN MAMM (CAD)W/AKNA BILAT MR#: [id number] Acct: [id number] Name: ANA RAWLS Rep #: [id number] : 1955 F 70 From: Cathie Rodriguez MD PCP: Dr. Fiona Urena MD Status: REG CLI Study: SCRN MAMM (CAD)W/AKNA BILAT Date of Exam: 02/21 Exam# [id number] Ordering Dr: Fiona Urena MD EXAM: SCRN [...] be mailed to the patient. Reading Location: [facility] CC: Dr. Fiona Urena MD Consumer Electronic Retail Specialist: Signed Normal [facility] CNCOon 08-16-2022 CNCO Letter Text Normal [facility] CNCOon 07-20-2022 [facility] HNO ID: [id number] Author: Mammography Coordinator Service: ? Author Type: Physician Type: Letter Filed: 07/21/2022 11:35 PM Note Text: July 20, 2022 PID: [id number] Ana Rawls [address] [place] [address] Dear Ms. Rawls, Your recent breast imaging exam on 07/20/2022 showed a possible finding that requires additional imaging studies for a complete evaluation. Most such findings are probably benign (not cancer). If you have a healthcare provider who ordered/prescribed your screening mammogram: Please call [phone] or [phone]: [phone] to schedule an appointment for your additional [...] and reports are kept on file at [facility] as part of your permanent medical record, and are available for your continuing care. Thank you for allowing us to help in meeting your health care needs. Sincerely, Dr. Rooney Interpreting Radiologist [facility] (Additional imaging) Normal [facility] SCREENINGon 07-20-2022 [facility] SCREENING * * *Final Report* * * DATE OF EXAM: Jul 20 2022 10:09AM WRW 0581 - [facility] SCREENING / PROCEDURE REASON: screening mammogram * * * * Physician Interpretation * * * * RESULT: #[id number] - [facility] SCREENING BILATERAL DIGITAL SCREENING MAMMOGRAM WITH CAD: 07/20/2022 HISTORY: Screening Mammogram /Screening Mammogram-Patient reports NO symptoms. /priors available for comparison. RESULT: TECHNIQUE: The study was acquired using full field digital technology and interpreted from soft copy. Current study was also evaluated with a Computer Aided Detection (CAD). Comparison is made to exams dated: 06/19/2012 mammogram - [facility], 02/01/2010 mammogram, and 04/16/2007 mammogram. The tissue [...] by a staff physician. Schuyler tolentino,william/kimberly:07/20/2022 10:11:08 Watch Hairspring Assembler(s): Toshia Mays, [facility] letter sent: Additional Imaging Needed Mammogram BI-RADS: 0 Incomplete: needs additional imaging evaluation If this report indicates you need additional imaging, and it has NOT yet been performed, please call , to schedule. We sincerely thank you for choosing the [facility] for your breast imaging needs. Multiple [...] Health, Family Medicine, and Medical/Surgical Oncology, the [facility] has carefully reviewed the data and [...] their providers when to stop screening mammograms. Consumer Electronic Retail Specialist: Kimberly Transcribe Date/Time: Jul 20 2022 9:44A Dictated by: MELANIE JEFFRIES MD This examination was interpreted and the report reviewed and electronically signed by: SCHUYLER ROONEY MD on Jul 20 2022 10:11AM EST [id number] Normal [facility] Absolute lymphocyte counton 06-29-2022 Lymphocytes Auto (Unsp spec) [#/Vol] 1.46 10*3/uL 0.83-4.51 [facility] Work Phone: Basophil percentageon 2021 Basophils/100 WBC (Bld) 0.8 % 0-1 [facility] Work Phone: Bilirubin [Mass/Vol] 0.80 mg/dL 0.20-1.00 [facility] Work Phone: Comment on above: For patients on eltr ombopag therapy, use of Dimension [place] TBIL is not recommended. Chloride [Moles/Vol] 109 mmol/L 98-107 [facility] Work Phone: Cholesterol [Mass/Vol] 172 mg/dL <200 [facility] Work Phone: Comment on above: <200 mg/dL Desirable 200-240 mg/dL Borderline >240 mg/dL High Risk Eosinophils/100 WBC (Bld) 7.0 % 0-5 [facility] Work Phone: Glucose [Mass/Vol] 94 mg/dL 74-106 [facility] Work Phone: Neutrophils (Bld) [#/Vol] 2.9 10*3/uL 2.0-7.7 [facility] Work Phone: Neutrophils/100 WBC (Bld) 56.1 % 47-70 [facility] Work Phone: Potassium [Moles/Vol] 4.2 mmol/L 3.5-5.1 [facility] Work Phone: Protein [Mass/Vol] 7.9 g/dL 6.4-8.2 [facility] Work Phone: Sodium [Moles/Vol] 140 mmol/L 136-145 [facility] Work Phone: Triglyceride [Mass/Vol] 135 mg/dL <199 [facility] Work Phone: Comment on above: The drugs N-Acetylcy steine and Metamizole may falsely depress this assay.Serum Triglycerides Reference Interval Normal <150 mg/dL Borderline high 150 - 199 mg/dL High 200 - 499 mg/dL Very High > or = 500 mg/dL WBC (Bld) [#/Vol] 5.2 10*3/uL 4.4-11.0 [facility] Work Phone: Blood erythrocytes count (nu mber/volume)on 06-29-2022 RBC (Bld) [#/Vol] 4.88 10*6/uL 4.2-5.4 [facility] Work Phone: Blood hemoglobin measurement (mass/volume)on 06-29-2022 Hemoglobin (Bld) [Mass/Vol] 15.0 g/dL 12.0-15.0 [facility] Work Phone: Blood lymphocytes/100 leukoc yteson 06-29-2022 Lymphocytes/100 WBC (Bld) 28.3 % 19-41 [facility] Work Phone: Blood monocytes/100 leukocyt eson 06-29-2022 Monocytes/100 WBC (Bld) 7.6 % 0-10 [facility] Work Phone: Blood platelet mean volumeon 06-29-2022 Platelet mean volume (Bld) [Entitic vol] 10.3 fL 6.2-12.0 [facility] Work Phone: Determination of erythrocyte mean corpuscular volume (MCV)on 06-29-2022 MCV (RBC) [Entitic vol] 94.5 fL 81-99 [facility] Work Phone: Hematocrit Auto (Bld) [Volum e fraction]on 06-29-2022 Hematocrit (Bld) [Volume fraction] 46.1 % 37-47 [facility] Work Phone: Laboratory - Chemistry and C hemistry - challengeon 06-29-2022 ALP [Catalytic activity/Vol] 51 U/L 45-117 [facility] Work Phone: ALT [Catalytic activity/Vol] 26 U/L 13-56 [facility] Work Phone: CO2 [Moles/Vol] 27.0 mmol/L 21.0-32.0 [facility] Work Phone: Globulin (S) [Mass/Vol] 4.2 g/dL 2.2-4.2 [facility] Work Phone: Urea nitrogen/Creatinine [Mass ratio] 16.2 mg/mg 10-20 [facility] Work Phone: Laboratory - Hematology and Cell countson 06-29-2022 Erythrocyte distribution width (RBC) [Entitic vol] 44.5 fL 35.1-43.9 [facility] Work Phone: Erythrocyte distribution width (RBC) [Ratio] 13.1 % 11.6-14.6 [facility] Work Phone: Immature granulocytes/100 WBC (Bld) 0.200 % 0.0-0.9 [facility] Work Phone: Comment on above: IG% - Immature Granu locytes (promyelocytes, myelocytes and metamyelocytes) > 1% indicates that a LEFT SHIFT is Present. MCH (RBC) [Entitic mass] 30.7 pg 27.0-32.0 [facility] Work Phone: Nucleated RBC/100 WBC (Bld) [Ratio] 0 % 0-5 [facility] Work Phone: MCHC Auto (RBC) [Mass/Vol]on 06-29-2022 MCHC (RBC) [Mass/Vol] 32.5 g/dL 32-36 [facility] Work Phone: No Panel Informationon 06-29 Estimated GFR (MDRD) Amer 72 mL/min >60 [facility] Work Phone: Comment on above: GFR Calc Estimated GFR (MDRD) Non-Af Amer 60 mL/min >60 [facility] Work Phone: Comment on above: Non- GFR Calc Platelets bldon 06-29-2022 Platelets (Bld) [#/Vol] 183 10*3/uL 150-450 [facility] Work Phone: Serum or plasma albumin mana urement (mass/volume)on 06-29-2022 Albumin [Mass/Vol] 3.7 g/dL 3.2-5.0 [facility] Work Phone: Serum or plasma albumin/glob ulin mass ratioon 06-29-2022 Albumin/Globulin [Mass ratio] 0.9 {ratio} 0.9-2.4 [facility] Work Phone: Serum or plasma calcium mana urement (mass/volume)on 06-29-2022 Calcium [Mass/Vol] 9.2 mg/dL 8.5-10.1 [facility] Work Phone: Serum or plasma cholesterol in HDL measurement (mass/volume)on 06-29-2022 Cholesterol in HDL [Mass/Vol] 40 mg/dL >40 [facility] Work Phone: Comment on above: The drugs N-Acetylcy steine and Metamizole may falsely depress this assay. Reference Range HDL <40 mg/dL Low HDL Cholesterol HDL >or= 60 mg/dL High HDL Cholesterol Serum or plasma cholesterol in VLDL measurement (mass/volume)on 06-29-2022 Cholesterol in VLDL [Mass/Vol] 27 mg/dL 5-40 [facility] Work Phone: Serum or plasma creatinine m easurement (mass/volume)on 06-29-2022 Creatinine [Mass/Vol] 0.98 mg/dL 0.55-1.02 [facility] Work Phone: Comment on above: The validity of the calculated GFR & GFRAA in patients over 70 years has not been determined. Clinical correlation is essential. Serum or plasma low density lipoprotein (LDL) cholesterol measurement (mass/volume)on 06-29-2022 Cholesterol in LDL [Mass/Vol] 105 mg/dL 0-130 [facility] Work Phone: Serum or plasma urea nitroge n measurement (mass/volume)on 06-29-2022 Urea nitrogen [Mass/Vol] 16 mg/dL 7-18 [facility] Work Phone: Thin prep Papanicolaou smear with manual screeningon 06-29-2022 Thin prep Papanicolaou smear with manual screening 21 U/L 15-37 [facility] Work Phone: Thin prep Papanicolaou smear with manual screening 4 5-15 [facility] Work Phone[facility] RAW[facility] ([id number]) 1955 Date Time Provider Department 06/24/22 RASHEED CANO [...] Status:Closed by LORE LOVE on 06/24/22 Normal [facility] Vital Signs Date Time Vital Sign Value Performing Clinician Isabel almazan 05-28-2025 07:39-0400 Body mass index (BMI) [Ratio] 45.4 kg/m2 Dr. Fiona Urena MD Work Phone: [facility] 05-28-2025 07:39-0400 Body weight 120.[address] Fiona Urena MD Work Phone: [facility] 05-28-2025 07:39-0400 Diastolic blood pressure 84 mm[Hg] Dr. Fiona Urena MD Work Phone: [facility] 05-28-2025 07:39-0400 Heart rate 68 /min Dr. Fiona Urena MD Work Phone: [facility] 05-28-2025 07:39-0400 Respiratory rate 18 /min Dr. Fiona Urena MD Work Phone: [facility] 05-28-2025 07:39-0400 SaO2% (BldA) [Mass fraction] 98 % Dr. Fiona Urena MD Work Phone: [facility] 05-28-2025 07:39-0400 Systolic blood pressure 131 mm[Hg] Dr. Fiona Urena MD Work Phone: [facility] 05-12-2025 06:41-0400 Body mass index (BMI) [Ratio] 44.8 kg/m2 Dr. Fiona Urena MD Work Phone: [phone] [place] [address] 05-12-2025 06:41-0400 Body weight 118.[address] Fiona Urena MD Work Phone: 2(871)883-865657 [place] [address] 05-12-2025 06:41-0400 Diastolic blood pressure 79 mm[Hg] Dr. Fiona Urena MD Work Phone: [facility] 05-12-2025 06:41-0400 Heart rate 70 /min Dr. Fiona Urena MD Work Phone: [facility] 05-12-2025 06:41-0400 Respiratory rate 18 /min Dr. Fiona Urena MD Work Phone: [facility] 05-12-2025 06:41-0400 SaO2% (BldA) [Mass fraction] 97 % Dr. Fiona Urena MD Work Phone: [facility] 05-12-2025 06:41-0400 Systolic blood pressure 124 mm[Hg] Dr. Fiona Urena MD Work Phone: [facility] 04-07-2025 06:55-0400 Body mass index (BMI) [Ratio] 45.4 kg/m2 Dr. Fiona Urena MD Work Phone: [facility] 04-07-2025 06:55-0400 Body weight 120.[address] Fiona Urena MD Work Phone: [facility] 04-07-2025 06:55-0400 Diastolic blood pressure 86 mm[Hg] Dr. Fiona Urena MD Work Phone: [facility] 04-07-2025 06:55-0400 Heart rate 57 /min Dr. Fiona Urena MD Work Phone: [facility] 04-07-2025 06:55-0400 Respiratory rate 18 /min Dr. Fiona Urena MD Work Phone: [facility] 04-07-2025 06:55-0400 SaO2% (BldA) [Mass fraction] 99 % Dr. Fiona Urena MD Work Phone: [facility] 04-07-2025 06:55-0400 Systolic blood pressure 162 mm[Hg] Dr. Fiona Urena MD Work Phone: [facility] 03-05-2025 10:34-0400 Body height 162.[address] Fiona Urena MD Work Phone: [facility] 03-05-2025 10:34-0400 Body mass index (BMI) [Ratio] 46.3 kg/m2 Dr. Fiona Urena MD Work Phone: [facility] 03-05-2025 10:34-0400 Body weight 122.[address] Fiona Urena MD Work Phone: [facility] 03-05-2025 10:34-0400 Diastolic blood pressure 96 mm[Hg] Dr. Fiona Urena MD Work Phone: [facility] 03-05-2025 10:34-0400 Heart rate 82 /min Dr. Fiona Urena MD Work Phone: [facility] 03-05-2025 10:34-0400 Respiratory rate 16 /min Dr. Fiona Urena MD Work Phone: [facility] 03-05-2025 10:34-0400 Systolic blood pressure 162 mm[Hg] Dr. Fiona Urena MD Work Phone: [facility] Encounters Encounter Date Encounter Type Care Provider Facility Start: 06-24-2025 End: 06-24-[address] Fiona Urena MD Work Phone: -Laboratory Start: 06-24-2025 End: 06-24-2025 Patient encounter procedure Alberto Demiter PA -Laboratory Work Phone: Start: 06-24-2025 End: 06-24-2025 ambulatory Alberto Demiter Facility:[facility] Start: 06-12-2025 End: 06-12-[address] Fiona Urena MD Work Phone: -Laboratory Start: 06-12-2025 End: 06-12-2025 Patient encounter procedure Alberto Demiter PA -Laboratory Work Phone: Start: 06-12-2025 End: 06-12-2025 ambulatory Alberto Demiter Facility:[facility] Start: 06-04-2025 ambulatory Mitul Moore Facility:[facility] Start: 06-04-2025 Non-patient / Non-visit Dr. Margo BAUTISTA -[facility] Start: 06-04-2025 End: 06-04-[address] Fiona Urena MD Work Phone: -Cardiovascular Services Start: 06-04-2025 End: 06-04-2025 Patient encounter procedure Alberto Demiter PA -Cardiovascular Services Work Phone: Start: 06-04-2025 End: 06-04-2025 ambulatory Alberto Demiter Facility:[facility] Start: 05-28-2025 End: 05-28-[address] Fiona Urena MD Work Phone: -Laboratory Start: 05-28-2025 End: 05-28-2025 Patient encounter procedure Alberto Luciana PA -Laboratory Work Phone: Start: 05-28-2025 End: 05-28-2025 Patient encounter procedure Alberto Caryiter PA -[facility] Work Phone: Start: 05-28-2025 End: 05-28-[address] Fiona Urena MD Work Phone: -[facility] Start: 05-28-2025 End: 05-28-2025 ambulatory Alberto Luciana Facility:[facility] Start: 05-12-2025 End: 05-12-2025 Patient encounter procedure Alberto Caryiter PA -[facility] Work Phone: Start: 05-12-2025 End: 05-12-[address] Fiona Urena MD Work Phone: -[facility] Start: 04-15-2025 Non-patient / Non-visit Danielle reyes NP-C -[facility] Work Phone: Start: 04-15-2025 ambulatory Danielle Lozano NP Facili ty:[facility] Start: 04-11-2025 Non-patient / Non-visit Dr. Margo BAUTISTA -[facility] Start: 04-11-2025 End: 04-11-[address] Fiona Urena MD Work Phone: [facility] Work Phone: Start: 04-11-2025 End: 04-11-[address] Mitul Moore MD -Cardiovascular Services Work Phone: Start: 04-11-2025 End: 04-11-2025 ambulatory Mitul Moore Facility:[facility] Start: 04-07-2025 End: 04-07-2025 Patient encounter procedure Alberto Chowdhury PA -[facility] Work Phone: Start: 04-07-2025 End: 04-07-[address] Fiona Urena MD Work Phone: [facility] Work Phone: Start: 04-07-2025 End: 04-07-2025 ambulatory Alberto Chowdhury Facility:[facility] Start: 03-05-2025 End: 03-05-[address] Mitul Moore MD -[facility] Work Phone: Start: 03-05-2025 End: 03-05-2025 ambulatory Mitul Moore Facility:[facility] Start: 01-31-2025 End: 01-31-[address] Fiona Urena MD Work Phone: [facility] Work Phone: Start: 01-31-2025 End: 01-31-[address] Fiona Urena MD -Outpatient Breast Imaging Work Phone: Start: 01-31-2025 End: 01-31-2025 ambulatory Fiona Urena Facility:[facility] Start: 08-26-2022 End: 08-26-2022 ambulatory [facility] Work Phone: Start: 08-26-2022 End: 08-26-2022 Patient encounter procedure [facility]-Outpatient Breast Imaging Start: 07-20-2022 Documentation procedure Mammog kathy Coordinator [facility] Start: 07-20-2022 Letter encounter Mammography Coordinator [facility] Department Start: 07-20-2022 End: 07-20-2022 ambulatory FIONA URENA Facility:[facility] Start: 07-20-2022 End: 07-20-2022 Subsequent hospital visit by physician Screen Mammo [facility] Start: 06-29-2022 End: 06-29-2022 ambulatory [facility] Work Phone: Start: 06-29-2022 End: 06-29-2022 Patient encounter procedure [facility]-Laboratory Start: 06-24-2022 Telephone encounter Rasheed Cano MD [...] Activity Detail Author Start: 07-20-2023 Mammography MAMMOGRAM [facility] Start: 06-30-2022 Influenza vaccination INFLUENZA (#1) [facility] Start: 10-30-2021 ADVANCE DIRECTIVE DISCUSSION ADVANCE DIRECTIVE DISCUSSION [facility] Start: 01-11-2020 BONE DENSITY BONE DENSITY [facility] Start: 01-11-2020 PNEUMOCOCCAL: 65+ (1 - PCV) PNEUMOCOCCAL: 65+ (1 - PCV) [facility] Start: 06-19-2013 Mammography MAMMOGRAM [facility] Start: 02-11-2013 LIPID SCREEN LIPID SCREEN [facility] Start: 02-11-2011 DIABETES SCREEN DIABETES SCREEN [facility] Start: 2005 SHINGRIX VACCINE (1 of 2) SHINGRIX VACCINE (1 of 2) [facility] Start: 01-11-2000 COLOGUARD (FIT-DNA) COLOGUARD (FIT-DNA) [facility] Start: 01-11-2000 Colonoscopy COLONOSCOPY [facility] Start: 01-11-2000 COLORECTAL CANCER SCREENING COLORECTAL CANCER SCREENING [facility] Start: 01-11-[address] COLONOGRAPHY [facility] Start: 01-11-2000 FECAL OCCULT BLOOD FECAL OCCULT BLOOD [facility] Start: 01-11-2000 SIGMOIDOSCOPY SIGMOIDOSCOPY [facility] Start: 1974 Urine microalbumin profile DTAP,TDAP,TD (1 - Tdap) [facility] Start: 1973 HEPATITIS C SCREENING HEPATITIS C SCREENING [facility] Start: 1967 Adult depression screening assessment DEPRESSION SCREENING [facility] Start: 1955 COVID-19 VACCINE (#1) COVID-19 VACCINE (#1) [facility] Basic metabolic 2007 panel with ionized calcium - Serum or Plasma [facility] Basic metabolic 2007 panel with ionized calcium - Serum or Plasma [facility] Basic metabolic 2007 panel with ionized calcium - Serum or Plasma [facility] NM Heart Views W str ess and W radionuclide IV [facility] c Immunizations Immunization Date Immunization Notes Care Provider Fa lexa 12-25-2021 tetanus toxoid, redu [place] diphtheria toxoid, and acellular pertussis vaccine, adsorbed [facility] 09-30-2017 influenza, injectabl e, quadrivalent, contains preservative Rasheed Cano MD Work Phone: [facility] Payers Date Payer Category Payer Unknown [id number] 2025 Self-pay [id number] 2020 Unknown [employer] PPO OOS [id number] 2020-Present [phone] [address] [place] [address] PPO [id number] 2020 Unknown [id number] Unknown [id number] Unknown . [id number] Unknown [id number] Unknown [id number] Unknown [id number] Unknown [id number] Unknown [id number] Unknown [id number] Unknown [id number] Unknown [id number] [id number] Unknown [id number] Unknown [id number] [id number] Unknown [id number] [id number] Unknown [id number] [id number] Unknown [id number] Unknown [id number] Social History Date Type Detail Facility Start: 12-25-2021 End: 03-05-2025 Tobacco smoking status NHIS Never smoked tobacco [facility] Start: 06-15-2022 Alcohol intake Current non-dr identity management consultant of alcohol (finding) [facility] Start: 1955 Sex Assigned At Not on file [facility] Start: 12-25-2021 Tobacco smoking stat [facility] Unknown if ever smoked [facility] Work Phone: Start: 1955 Sex Assigned At Female [facility] Start: 06-14-2022 End: 06-24-2022 Exposure to SARS-CoV-2 (event) Not sure [facility] Start: 02-05-2025 Sex Female (finding) [facility] Clinical Notes 06-24-2022 to 04-07-2025 Note Date & Type Note Facility 04-07-2025 Evaluation note Diagnosis Onset Date Resolution Aortic stenosis acute April 07, 2025 10:48am [...] 8:15am Hypertension chronic May 28, 025 8:15am [facility] Work Phone: 1(534) 830-920005-07-2025 Evaluation note* Diagnosis Onset Date Resolution Status Admit Date Aortic stenosis acute March 05, 2025 8:55am Chest discomfort acute March 05, 2025 8:55am LBBB (left bundle branch block) acut e March 05, 2025 8:55am Aortic stenosis acute April 07, 2025 10:48am Chest discomfort acute March 10:48am LBBB (left bundle branch block) acut e April 07, 2025 10:48am [facility] Work Phone: 1(781) 312-978905-07-2025 Evaluation note* Diagnosis Onset Date Resolution Status Admit Date Aortic stenosis acute March 05, 2025 8:55am LBBB (left bundle branch block) acut e March 05, 2025 8:55am Chest discomfort resolved March 05, 2025 8:55am Aortic stenosis acute April 07, 2025 10:48am LBBB (left bundle branch block) acut e April 07, 2025 10:48am Hypertension chronic April 07 10:48am Chest discomfort resolved March 10:48am [facility] Work Phone: 1(965) 275-519505-07-2025 Evaluation note* Diagnosis Onset Date Resolution Status Admit Date Aortic stenosis acute March 05, 2025 8:55am LBBB (left bundle branch block) acut e March 05, 2025 8:55am Chest discomfort resolved March 05, 2025 8:55am Aortic stenosis acute April 07, 2025 10:48am LBBB (left bundle branch block) acut e April 07, 2025 10:48am Hypertension chronic April 07 10:48am Chest discomfort resolved March 10:48am Aortic stenosis acute April 8:46am Heart failure with reduced ejection fraction (HFrEF, <= 40%) acute May 12, 2025 8:46am LBBB (left bundle branch block) acut e May 12, 2025 8:46am Hypertension chronic May 12, 025 8:46am [facility] Work Phone: 1(275) 677-764505-07-2025 Evaluation note* Diagnosis Onset Date Resolution Status Admit Date Aortic stenosis acute March 05, 2025 8:55am LBBB (left bundle branch block) acut e March 05, 2025 8:55am Chest discomfort resolved March 05, 2025 8:55am Aortic stenosis acute April 07, 2025 10:48am LBBB (left bundle branch block) acut e April 07, 2025 10:48am Hypertension chronic April 07 10:48am Chest discomfort resolved March 10:48am Aortic stenosis acute April 8:46am Heart failure with reduced ejection fraction (HFrEF, <= 40%) acute May 12, 2025 8:46am LBBB (left bundle branch block) acut e May 12, 2025 8:46am Hypertension chronic May 12, 025 8:46am Aortic stenosis acute April 8:15am Heart failure with reduced ejection fraction (HFrEF, <= 40%) acute May 28, 2025 8:15am LBBB (left bundle branch block) acut e May 28, 2025 8:15am Hypertension chronic May 28, 025 8:15am [place] Work Phone: 1(670) 289-159609-21-2022 NoteHNO ID: [id number] Author: RT Duc(R) Service: ? Author Type: [...] BY: RT Duc(R) July 20, 2022 9:09 [facility]09-21-2022 Miscellaneous Notes* Letter - Mammography Coordinator - 07/20/2022 10:11 AM EDT July 20, 2022 PID: [id number] Ana Rawls [address] [place] [address] Dear Ms. Rawls, Your recent breast imaging exam on 07/20/2022 showed a possible finding that requires additional imaging studies for a complete evaluation. Most such findings are probably benign (not cancer). If you have a healthcare provider who ordered/prescribed your screening mammogram: Please call [phone] or [phone] to schedule an appointment for your additional imaging (if youhave not already done so). If you DO [...] and reports are kept on file at [facility] as part of your permanent medical record, and are available for your continuing care. Thank you for allowing us to help in meeting your health care needs. Sincerely, Dr. Rooney Interpreting Radiologist [facility] (Additional imaging) documented in this encounterTri[facility]09-[facility] History of Present illness Narrative* RT Duc(R) - 07/20/2022 9:10 AM EDT Radiology Service Progress Note PATIENT NAME: Ana Rawls DATE OF SERVICE: July 20, 2022 TIME: 9:09 AM PATIENT IDENTITY VERIFICATION COMPLETED USING TWO (2) IDENTIFIERS: Name and Date of confirmedby patient verbally. FALL SCREENING: Has the patient [...] 20, 2022 9:09 AM documented in this encounterTri[facility]08-[facility]22 Miscellaneous Notes* Telephone Encounter - Lore Love - 06/24/2022 1:51 PM EDT Replaying to fax referral. More information needed what the consult is for. Tried calling patient but the phone number given isn't in service. Patient doesn't have usable email listed. Lore Love documented in this encounterTrihealth Good Samaritan HospitalEvaluation noteNo assessment information availableWWright-Patterson Medical Center Work Phone: Reason for referral (narrative)No reason for referral information availableWWright-Patterson Medical Center Work Phone: Advance Directives No Advanced Directives Records Found Advance Directive Response Recorded Date/ Time Living Will No December 25, 2 022 3:39pm Power of Show Host No December 25, 2021 3:39pm Summary Purpose [...] WK FU May 28, 2025 8:15 am Reason for [...] 2 WK May 28, 2025 8:15 am E-ORDER May 28, 2025 10:0 0am LBBB, HRrEF June 04, 2025 6:4 3am LBBB, HRrEF June 04, 2025 6:2 9pm Chief Complaint Admit Date 1 M FU April 07, 2025 10:48 am INT LAB ORDER April 07, 2025 11:27 am MURMUR April 11, 2025 8:04 am Amb Documentation April 15, 2025 1:03 pm 6 WK FU May 12, 2025 8:46 am 2 WK May 28, 2025 8:15 am E-ORDER May 28, 2025 10:0 0am LBBB, HRrEF June 04, 2025 6:4 3am LBBB, HRrEF June 04, 2025 6:2 9pm Reason for Visit Admit Date Aortic stenosis April 07, 2025 10:48 am [...] or prosecute any alcohol or drug abuse patient.[facility] HospitalIn the event this information is protected by the Federal Confidentiality of Alcohol and Drug Abuse Patient Records regulations: The Federal rules restrict any use of the information to criminally investigate or prosecute any alcohol or drug abuse patient.[facility] HospitalIn the event this information is protected by the Federal Confidentiality of Alcohol and Drug Abuse Patient Records regulations: The Federal rules restrict any use of the information to criminally investigate or prosecute any alcohol or drug abuse patient.[facility] Reason for Visit (unrecogniz ed section [...] section and content) DATE CREATED AUTHOR 08/21/2022 [facility] DATE CREATED AUTHOR AUTHOR'S ORGANIZ ATION 07/06/2025 [facility] Care Teams (unrecognized sec tion and content) Team Status: Active Member Role Status Dates Dr. Fiona Urena MD Primary Care Provider Active Team Status: Inactive Member Role Status Dates Dr. Fioan Urena MD Primary Care Provider Active Start: [...] Active Start: April 15, 2025 Danielle Lozano JUVENILE DETENTION OFFICER, JUVENILE DETENTION OFFICER-C Attending Provider Active Start: April 15, 2025 Team Status: Active Member Role/Relationship Status Dates Dr. Fiona Urena MD Primary Care Provider Active Team Status: Inactive Member Role/Relationship Status Dates Dr. Fiona Urena MD Primary Care Provider Active Start: January 31, 2025 End: January 31, 2025 Dr. Fiona Urena MD Attending Provider Active Start: January 31, 2025 End: January 31, 2025 Dr. Fiona rUena MD Referring Provider Active Start: January 31, [...] Active Start: April 15, 2025 Danielle Lozano JUVENILE DETENTION OFFICER, JUVENILE DETENTION OFFICER-C Attending Provider Active Start: April 15, 2025 [...] Active Start: April 15, 2025 Danielle Lozano JUVENILE DETENTION OFFICER, JUVENILE DETENTION OFFICER-C Attending Provider Active Start: April 15, 2025 [...] Active Start: May 28, 2025 Alberto Chowdhury PA Attending Provider Active St art: May 28, 2025 Alberto Chowdhury PA Referring Provider Active St art: May 28, 2025 Team Status: Inactive Member Role/Relationship Status Dates Dr. Fiona Urena MD Primary Care Provider Active Start: June 04, 2025 End: June 04, 2025 Alberto Chowdhury PA Attending Provider Active St art: June 04, 2025 End: June 04, 2025 Alberto Chowdhury PA Referring Provider Active St art: June 04, 2025 End: June 04, 2025 Team Status: Active Member Role/Relationship Status Dates Dr. Fiona Urena MD Primary Care Provider Active Start: June 04, 2025 PAMELA Leyva Referring Provider Active St art: June 04, 2025 PAMELA Leyva Other Provider Active Start: June 04, 2025 Dr. Mitul Moore MD Attending Provider Active S tart: June 04, 2025 Team Status: Inactive Member Role/Relationship Status Dates Dr. Fiona Urena MD Primary Care Provider Active Start: May 28, 2025 End: May 28, 2025 Alberto Chowdhury PA Attending Provider Active St art: May 28, 2025 End: May 28, 2025 Alberto Chowdhury PA Referring Provider Active St art: May 28, 2025 End: May 28, 2025 Team Status: Active Member Role/Relationship Status Dates Dr. Fiona Urena MD Primary Care Provider Active Start: June 12, 2025 PAMELA Leyva Attending Provider Active St art: June 12, 2025 PAMELA Leyva Referring Provider Active St art: June 12, 2025 Team Status: Inactive Member Role/Relationship Status Dates Dr. Fiona Urena MD Primary Care Provider Active Start: June 12, 2025 End: June 12, 2025 PAMELA Leyva Attending Provider Active St art: June 12, 2025 End: June 12, 2025 Alberto Chowdhury PA Referring Provider Active St art: June 12, 2025 End: June 12, 2025 Team Status: Inactive Member Role/Relationship [...] 2025 End: April 11, 2025 Dr. Mitul oMore MD Referring Provider Active S tart: April [...] Active Start: April 15, 2025 Danielle Lozano JUVENILE DETENTION OFFICER, JUVENILE DETENTION OFFICER-C Attending Provider Active Start: April 15, 2025 [...] 2025 End: May 28, 2025 PAMELA Leyva Referring Provider Active St art: May 28, 2025 End: May 28, 2025 Team Status: Inactive Member Role/Relationship Status Dates Dr. Fiona Urena MD Primary Care Provider Active Start: June 04, 2025 End: June 04, 2025 PAMELA Leyva Attending Provider Active St art: June 04, 2025 End: June 04, 2025 Albertomahesh Chowdhury , PA Referring Provider Active St art: June 04, 2025 End: June 04, 2025 Team Status: Active Member Role/Relationship Status Dates Dr. Fiona Urena MD Primary Care Provider Active Start: June 04, 2025 PAMELA Leyva Referring Provider Active St art: June 04, 2025 PAMELA Leyva Other Provider Active Start: June 04, 2025 Dr. Mitul Moore MD Attending Provider Active S tart: June 04, 2025 Team Status: Inactive Member Role/Relationship Status Dates Dr. Fiona Urena MD Primary Care Provider Active Start: June 12, 2025 End: June 12, 2025 Alberto Chowdhury , PA Attending Provider Active St art: June 12, 2025 End: June 12, 2025 Alberto Demjazmyne , PA Referring Provider Active St art: June 12, 2025 End: June 12, 2025 Team Status: Inactive Member Role/Relationship Status Dates Dr. Fiona Urena MD Primary Care Provider Active Start: June 24, 2025 End: June 24, 2025 Alberto Chowdhury PA Attending Provider Active St art: June 24, 2025 End: June 24, 2025 Alberto Chowdhury PA Referring Provider Active St art: June 24, 2025 End: June 24, 2025 FOR RECORDS PERTAINING TO PATIENTS WHO [...] BE BASED ON THE PRIMARY CLINICAL RECORDS. [facility]. provides no warranty or guarantee of the accuracy or completeness of information in this document.
== END | disposition home or self-care (01) ==
LOC: PSN 09:31
PROVIDERS: PCP Family Medicine; Referring Provider Specialist; Visit Provider Specialist
DX: Z01.818 Encounter for other preprocedural examination (principal); Z01.810 Encounter for preprocedural cardiovascular examination; I10 Essential (primary) hypertension; I45.10 Unspecified right bundle-branch block
CPT/HCPCS: 36415; 85025; 93005